=== PATIENT | male | born 1945 | race Caucasian/White ===

== ENCOUNTER 2020-12-18 15:28 | Outpatient (REF) | payer BC, SELFPAY ==
[2020-12-18 17:53] LABS: MANUAL DIFF FLAG NO
[2020-12-18 18:24] LABS: Basophils Percent Auto 0.5 % (0-2); Eosinophils Absolute Auto 0.2 X10*3/uL (0.0-0.4); Eosinophils Percent Auto 2.7 % (0-4); Hematocrit 41.2 % (42-52); Hemoglobin 13.3 g/dl (14.0-18.0); Imm Gran Abs Auto 0.03 X10*3/uL (0.00-0.03); Imm Gran Pct Auto 0.4 % (0.0-0.4); Lymphocytes Absolute Auto 1.6 X10*3/uL (1.2-4.9); Lymphocytes Percent Auto 19.1 % (20-40); Mean Corpuscular HGB Conc 32.3 g/dl (31.0-36.0); Mean Corpuscular Hemoglobin 29.4 pg (27.0-33.0); Mean Corpuscular Volume 90.9 fL (80-98); Mean Platelet Volume 11.1 fL (9.4-12.4); Monocytes Absolute Auto 0.8 X10*3/uL (0.1-1.2); Monocytes Percent Auto 8.8 % (2-11); Neutrophils Absolute Auto 5.9 X10*3/uL (2.0-8.3); Neutrophils Percent Auto 68.5 % (45-73); Platelet Count 184 X10*3/uL (160-400); Red Blood Count 4.53 X10*6/uL (4.60-5.80); Red Cell Distribution Width 13.3 % (11.0-16.0); White Blood Count 8.5 X10*3/uL (4.8-10.8)
[2020-12-18 18:42] LABS: Free T4 (Free Thyroxine) 0.75 ng/dL (0.71-1.85)
[2020-12-18 18:55] LABS: Erythrocyte Sedimentation Rate 45 MM/HR (0-15)
[2020-12-18 18:58] LABS: Alanine Aminotransferase 15 U/L (0-40); Albumin Level 3.9 g/dL (3.5-5.0); Alkaline Phosphatase 75 U/L (39-117); Amylase 33 U/L (28-100); Anion Gap 15 (12-20); Aspartate Amino Transferase 16 U/L (5-37); Bilirubin Direct 0.3 mg/dL (0.0-0.5); Bilirubin Total 0.8 mg/dL (0.0-1.0); Blood Urea Nitrogen 20 mg/dL (9-16); C Reactive Protein 14.52 mg/dL (< or = 0.50); Calcium 8.6 mg/dL (8.4-10.2); Carbon Dioxide 29 mmol/L (22-29); Chloride 102 mmol/L (96-108); Estimated Glomerular Filt Rate 53; Glucose Random 176 mg/dL (60-115); Lipase 19 U/L (8-78); Potassium 4.1 mmol/L (3.3-5.1); Rheumatoid Factor < 15.0 IU/mL (<15.0); Sodium 142 mmol/L (135-145); Total Protein 7.1 g/dL (6.5-8.0)
[2020-12-20 22:26] LABS: Anti Nuclear Antibody Pattern Nuclear, Homogeneous; Anti Nuclear Antibody Screen POSITIVE (NEGATIVE); Anti Nuclear Antibody Titer 1:40 titer
== END 2020-12-18 15:29 | disposition home or self-care (01) ==
LOC: HO.MANLDS 15:28
PROVIDERS: PCP Internal Medicine; Visit Provider Physician Assistant
DX: R21 Rash and other nonspecific skin eruption (principal)
CPT/HCPCS: 36415; 80053; 80076; 82150; 82248; 83690; 84439; 84443; 85025; 85652; 86038; 86039; 86140; 86431

== ENCOUNTER 2020-12-26 15:16 | Outpatient (REF) | payer BC, SELFPAY ==
[2020-12-26 17:51] LABS: MANUAL DIFF FLAG NO
[2020-12-26 18:00] LABS: Basophils Absolute Auto 0.1 X10*3/uL (0.0-0.2); Basophils Percent Auto 0.5 % (0-2); Eosinophils Absolute Auto 0.5 X10*3/uL (0.0-0.4); Eosinophils Percent Auto 4.8 % (0-4); Hemoglobin 14.1 g/dl (14.0-18.0); Imm Gran Abs Auto 0.18 X10*3/uL (0.00-0.03); Imm Gran Pct Auto 1.9 % (0.0-0.4); Lymphocytes Absolute Auto 2.9 X10*3/uL (1.2-4.9); Lymphocytes Percent Auto 30.6 % (20-40); Mean Corpuscular HGB Conc 32.8 g/dl (31.0-36.0); Mean Corpuscular Volume 88.3 fL (80-98); Mean Platelet Volume 10.6 fL (9.4-12.4); Monocytes Absolute Auto 0.8 X10*3/uL (0.1-1.2); Monocytes Percent Auto 8.7 % (2-11); Neutrophils Percent Auto 53.5 % (45-73); Platelet Count 284 X10*3/uL (160-400); Red Blood Count 4.87 X10*6/uL (4.60-5.80); Red Cell Distribution Width 13.2 % (11.0-16.0); White Blood Count 9.4 X10*3/uL (4.8-10.8)
[2020-12-26 18:39] LABS: Alanine Aminotransferase 19 U/L (0-40); Albumin Level 4.1 g/dL (3.5-5.0); Alkaline Phosphatase 65 U/L (39-117); Anion Gap 13 (12-20); Aspartate Amino Transferase 17 U/L (5-37); Bilirubin Total 0.5 mg/dL (0.0-1.0); Blood Urea Nitrogen 28 mg/dL (9-16); Calcium 9.2 mg/dL (8.4-10.2); Carbon Dioxide 29 mmol/L (22-29); Chloride 100 mmol/L (96-108); Estimated Glomerular Filt Rate 56; Glucose Random 118 mg/dL (60-115); Potassium 4.4 mmol/L (3.3-5.1); Rheumatoid Factor < 15.0 IU/mL (<15.0); Sodium 138 mmol/L (135-145); Total Protein 7.4 g/dL (6.5-8.0)
[2020-12-26 18:42] LABS: Erythrocyte Sedimentation Rate 21 MM/HR (0-15)
[2020-12-31 19:36] LABS: Anti Nuclear Antibody Screen NEGATIVE (NEGATIVE)
== END 2020-12-26 15:17 | disposition home or self-care (01) ==
LOC: HO.MANLDS 15:16
PROVIDERS: PCP Internal Medicine; Visit Provider Physician Assistant
DX: R21 Rash and other nonspecific skin eruption (principal)
CPT/HCPCS: 36415; 80053; 85025; 85652; 86038; 86039; 86140; 86431

== ENCOUNTER 2021-01-02 07:28 | Outpatient (REF) | payer BC, SELFPAY ==
[2021-01-02 11:19] LABS: Estimated Average Glucose 183 mg/dL
[2021-01-02 11:42] LABS: Alanine Aminotransferase 20 U/L (0-40); Albumin Level 4.1 g/dL (3.5-5.0); Alkaline Phosphatase 63 U/L (39-117); Anion Gap 13 (12-20); Aspartate Amino Transferase 19 U/L (5-37); Bilirubin Total 0.8 mg/dL (0.0-1.0); Blood Urea Nitrogen 22 mg/dL (9-16); Calcium 9.1 mg/dL (8.4-10.2); Carbon Dioxide 26 mmol/L (22-29); Chloride 103 mmol/L (96-108); Cholesterol 130 mg/dL; Estimated Glomerular Filt Rate > 60; Glucose Fasting 182 mg/dL (60-99); HDL Cholesterol 46 mg/dL; LDL Cholesterol Calculated 50 mg/dl; Potassium 4.5 mmol/L (3.3-5.1); Sodium 137 mmol/L (135-145); Total Protein 7.2 g/dL (6.5-8.0); Triglycerides 171 mg/dL
== END 2021-01-02 07:29 | disposition home or self-care (01) ==
LOC: HO.MANLR 07:28
PROVIDERS: PCP Internal Medicine; Visit Provider Internal Medicine
DX: E11.9 Type 2 diabetes mellitus without complications (principal)
CPT/HCPCS: 36415; 80053; 80061; 83036

== ENCOUNTER 2021-04-24 14:40 | Outpatient (REF) | payer BC, SELFPAY ==
[2021-04-24 16:58] LABS: Estimated Average Glucose 157 mg/dL; Hemoglobin A1c % 7.1 %
== END 2021-04-24 14:41 | disposition home or self-care (01) ==
LOC: HO.MANLDS 14:40
PROVIDERS: PCP Internal Medicine; Visit Provider Internal Medicine
DX: E11.9 Type 2 diabetes mellitus without complications (principal)
CPT/HCPCS: 36415; 83036

== ENCOUNTER 2021-07-31 14:41 | Outpatient (REF) | payer BC, SELFPAY ==
[2021-08-01 08:23] LABS: Estimated Average Glucose 146 mg/dL; Hemoglobin A1c % 6.7 %
== END 2021-07-31 14:42 | disposition home or self-care (01) ==
LOC: HO.MANLDS 14:41
PROVIDERS: PCP Internal Medicine; Visit Provider Internal Medicine
DX: E11.9 Type 2 diabetes mellitus without complications (principal)
CPT/HCPCS: 36415; 83036

== ENCOUNTER 2021-11-01 14:59 | Outpatient (REF) | payer BC, SELFPAY ==
[2021-11-01 18:34] LABS: Estimated Average Glucose 154 mg/dL
== END 2021-11-01 15:00 | disposition home or self-care (01) ==
LOC: HO.MANLDS 14:59
PROVIDERS: PCP Internal Medicine; Visit Provider Internal Medicine
DX: E11.9 Type 2 diabetes mellitus without complications (principal)
CPT/HCPCS: 36415; 83036

== ENCOUNTER 2022-02-14 07:41 | Outpatient (REF) | payer BC, SELFPAY ==
[2022-02-14 11:40] LABS: Estimated Average Glucose 157 mg/dL; Hemoglobin A1c % 7.1 %
[2022-02-14 11:53] LABS: Creatinine Urine 64.52 mg/dL; Microalbum/Creatinine Ratio Ur 7.7 ug/mg cr
[2022-02-14 12:19] LABS: Alanine Aminotransferase 21 U/L (0-40); Albumin Level 3.9 g/dL (3.5-5.0); Alkaline Phosphatase 60 U/L (39-117); Anion Gap 10 (12-20); Aspartate Amino Transferase 22 U/L (5-37); Bilirubin Total 0.4 mg/dL (0.0-1.0); Blood Urea Nitrogen 21 mg/dL (9-16); Calcium 9.4 mg/dL (8.4-10.2); Carbon Dioxide 30 mmol/L (22-29); Chloride 104 mmol/L (96-108); Cholesterol 112 mg/dL; Estimated Glomerular Filt Rate > 60; Glucose Fasting 158 mg/dL (60-99); HDL Cholesterol 45 mg/dL; LDL Cholesterol Calculated 50 mg/dl; Potassium 4.7 mmol/L (3.3-5.1); Sodium 139 mmol/L (135-145); Total Protein 7.2 g/dL (6.5-8.0); Triglycerides 86 mg/dL
== END 2022-02-14 07:42 | disposition home or self-care (01) ==
LOC: HO.MANLDS 07:41
PROVIDERS: PCP Internal Medicine; Visit Provider Internal Medicine
DX: E11.9 Type 2 diabetes mellitus without complications (principal)
CPT/HCPCS: 36415; 80053; 80061; 82043; 83036

== ENCOUNTER 2022-06-06 13:37 | Outpatient (REF) | payer BC, SELFPAY ==
[2022-06-06 18:32] LABS: Alanine Aminotransferase 20 U/L (0-40); Albumin Level 4.1 g/dL (3.5-5.0); Alkaline Phosphatase 61 U/L (39-117); Anion Gap 12 (12-20); Aspartate Amino Transferase 24 U/L (5-37); Bilirubin Total 0.4 mg/dL (0.0-1.0); Blood Urea Nitrogen 26 mg/dL (9-16); Calcium 9.4 mg/dL (8.4-10.2); Carbon Dioxide 31 mmol/L (22-29); Chloride 102 mmol/L (96-108); Cholesterol 115 mg/dL; Estimated Glomerular Filt Rate 57; Glucose Random 124 mg/dL (60-115); HDL Cholesterol 48 mg/dL; LDL Cholesterol Calculated 35 mg/dl; Potassium 5.2 mmol/L (3.3-5.1); Sodium 140 mmol/L (135-145); Total Protein 7.2 g/dL (6.5-8.0); Triglycerides 160 mg/dL
[2022-06-06 18:38] LABS: Creatinine Urine 139.89 mg/dL
[2022-06-06 18:52] LABS: Prostate Specific Antigen 0.16 ng/mL (<0.05-4.0)
[2022-06-07 05:18] LABS: Estimated Average Glucose 154 mg/dL
== END 2022-06-06 13:38 | disposition home or self-care (01) ==
LOC: HO.MANLDS 13:37
PROVIDERS: Visit Provider Internal Medicine
DX: Z12.5 Encounter for screening for malignant neoplasm of prostate (principal); E11.9 Type 2 diabetes mellitus without complications
CPT/HCPCS: 36415; 80053; 80061; 82043; 83036; 84153

== ENCOUNTER 2022-09-01 15:31 | Outpatient (REF) | payer BC, SELFPAY ==
[2022-09-01 18:06] LABS: Estimated Average Glucose 166 mg/dL; Hemoglobin A1c % 7.4 %
== END 2022-09-01 15:32 | disposition home or self-care (01) ==
LOC: HO.MANLDS 15:31
PROVIDERS: Visit Provider Internal Medicine
DX: E11.9 Type 2 diabetes mellitus without complications (principal); Z12.5 Encounter for screening for malignant neoplasm of prostate
CPT/HCPCS: 36415; 83036

== ENCOUNTER 2022-12-05 13:42 | Outpatient (REF) | payer BC, SELFPAY ==
[2022-12-05 19:45] LABS: Alanine Aminotransferase 20 U/L (0-40); Albumin Level 4.1 g/dL (3.5-5.0); Alkaline Phosphatase 69 U/L (39-117); Aspartate Amino Transferase 27 U/L (5-37); Bilirubin Total 0.7 mg/dL (0.0-1.0); Blood Urea Nitrogen 27 mg/dL (9-16); Calcium 9.3 mg/dL (8.4-10.2); Carbon Dioxide 26 mmol/L (22-29); Chloride 104 mmol/L (96-108); Cholesterol 109 mg/dL; Estimated Glomerular Filt Rate 56; Glucose Random 90 mg/dL (60-115); HDL Cholesterol 43 mg/dL; LDL Cholesterol Calculated 42 mg/dl; Potassium 4.5 mmol/L (3.3-5.1); Sodium 141 mmol/L (135-145); Triglycerides 124 mg/dL
[2022-12-05 19:46] LABS: Anion Gap 16 (12-20)
[2022-12-06 05:16] LABS: Estimated Average Glucose 148 mg/dL; Hemoglobin A1c % 6.8 %
== END 2022-12-05 13:43 | disposition home or self-care (01) ==
LOC: HO.MANLDS 13:42
PROVIDERS: Visit Provider Internal Medicine
DX: Z12.5 Encounter for screening for malignant neoplasm of prostate (principal); E11.9 Type 2 diabetes mellitus without complications
CPT/HCPCS: 36415; 80053; 80061; 83036

== ENCOUNTER 2023-03-13 07:38 | Outpatient (REF) | payer BC, SELFPAY ==
[2023-03-13 11:58] LABS: Estimated Average Glucose 134 mg/dL; Hemoglobin A1c % 6.3 %
[2023-03-13 12:16] LABS: Alanine Aminotransferase 22 U/L (0-40); Alkaline Phosphatase 57 U/L (39-117); Anion Gap 12 (12-20); Aspartate Amino Transferase 26 U/L (5-37); Bilirubin Total 0.6 mg/dL (0.0-1.0); Blood Urea Nitrogen 20 mg/dL (9-16); Calcium 9.3 mg/dL (8.4-10.2); Carbon Dioxide 28 mmol/L (22-29); Chloride 106 mmol/L (96-108); Cholesterol 94 mg/dL; Estimated Glomerular Filt Rate > 60; Glucose Random 115 mg/dL (60-115); HDL Cholesterol 40 mg/dL; LDL Cholesterol Calculated 39 mg/dl; Potassium 4.7 mmol/L (3.3-5.1); Sodium 141 mmol/L (135-145); Total Protein 7.2 g/dL (6.5-8.0); Triglycerides 75 mg/dL
== END 2023-03-13 07:39 | disposition home or self-care (01) ==
LOC: HO.MANLDS 07:38
PROVIDERS: Visit Provider Internal Medicine
DX: Z12.5 Encounter for screening for malignant neoplasm of prostate (principal); E11.9 Type 2 diabetes mellitus without complications
CPT/HCPCS: 36415; 80053; 80061; 83036

== ENCOUNTER 2023-07-03 13:36 | Outpatient (REF) | payer BC, SELFPAY ==
[2023-07-04 04:48] LABS: Estimated Average Glucose 146 mg/dL; Hemoglobin A1c % 6.7 % (<6.0)
== END 2023-07-03 13:37 | disposition home or self-care (01) ==
LOC: HO.MANLDS 13:36
PROVIDERS: Visit Provider Internal Medicine
DX: E11.9 Type 2 diabetes mellitus without complications (principal)
CPT/HCPCS: 36415; 83036

== ENCOUNTER 2023-10-02 07:34 | Outpatient (REF) | payer BC, SELFPAY ==
[2023-10-02 13:26] LABS: MANUAL DIFF FLAG NO
[2023-10-02 13:39] LABS: Basophils Absolute Auto 0.1 X10*3/uL (0.0-0.2); Basophils Percent Auto 0.9 % (0-2); Eosinophils Absolute Auto 0.5 X10*3/uL (0.0-0.4); Eosinophils Percent Auto 6.5 % (0-4); Hematocrit 46.1 % (42.0-52.0); Hemoglobin 14.6 g/dl (14.0-18.0); Imm Gran Abs Auto 0.03 X10*3/uL (0.00-0.03); Imm Gran Pct Auto 0.4 % (0.0-0.4); Lymphocytes Absolute Auto 1.8 X10*3/uL (1.2-4.9); Lymphocytes Percent Auto 26.3 % (20-40); Mean Corpuscular HGB Conc 31.7 g/dl (31.0-36.0); Mean Corpuscular Hemoglobin 28.6 pg (27.0-33.0); Mean Corpuscular Volume 90.4 fL (80.0-98.0); Mean Platelet Volume 10.9 fL (9.4-12.4); Monocytes Absolute Auto 0.5 X10*3/uL (0.1-1.2); Monocytes Percent Auto 7.5 % (2-11); Neutrophils Percent Auto 58.4 % (45-73); Platelet Count 259 X10*3/uL (160-400); Red Cell Distribution Width 13.4 % (11.0-16.0); White Blood Count 6.9 X10*3/uL (4.8-10.8)
[2023-10-02 13:55] LABS: Estimated Average Glucose 154 mg/dL
[2023-10-02 14:12] LABS: Alanine Aminotransferase 21 U/L (0-40); Alkaline Phosphatase 65 U/L (39-117); Anion Gap 16 (12-20); Aspartate Amino Transferase 28 U/L (5-37); Bilirubin Total 0.7 mg/dL (0.0-1.0); Blood Urea Nitrogen 22 mg/dL (9-16); Calcium 9.4 mg/dL (8.4-10.2); Carbon Dioxide 27 mmol/L (22-29); Chloride 103 mmol/L (96-108); Cholesterol 104 mg/dL (<200); Estimated Glomerular Filt Rate > 60; Glucose Random 120 mg/dL (60-115); HDL Cholesterol 45 mg/dL (>40); LDL Cholesterol Calculated 37 mg/dL (<100); Magnesium 2.3 mg/dL (1.6-2.6); Potassium 4.4 mmol/L (3.3-5.1); Sodium 142 mmol/L (135-145); Total Protein 7.8 g/dL (6.5-8.0); Triglycerides 114 mg/dL (<150)
[2023-10-02 14:29] LABS: Thyroid Stimulating Hormone 1.04 uIU/mL (0.32-4.0); Vitamin D 25-OH Total 30.1 ng/mL (>30)
== END 2023-10-02 07:35 | disposition home or self-care (01) ==
LOC: HO.MANLDS 07:34
PROVIDERS: Visit Provider Internal Medicine
DX: I10 Essential (primary) hypertension (principal); E11.9 Type 2 diabetes mellitus without complications
CPT/HCPCS: 36415; 80053; 80061; 82306; 83036; 83735; 84443; 85025

== ENCOUNTER 2024-01-06 15:34 | Outpatient (REF) | payer BC, SELFPAY ==
[2024-01-06 17:51] LABS: Estimated Average Glucose 154 mg/dL
== END 2024-01-06 15:35 | disposition home or self-care (01) ==
LOC: HO.MANLDS 15:34
PROVIDERS: Visit Provider Internal Medicine
DX: E11.9 Type 2 diabetes mellitus without complications (principal)
CPT/HCPCS: 36415; 83036

== ENCOUNTER 2024-04-11 07:29 | Outpatient (REF) | payer BC, SELFPAY ==
[2024-04-11 13:42] LABS: Estimated Average Glucose 151 mg/dL; Hemoglobin A1c % 6.9 % (<6.0)
[2024-04-11 13:46] LABS: Alanine Aminotransferase 22 U/L (0-40); Albumin Level 3.9 g/dL (3.5-5.0); Alkaline Phosphatase 59 U/L (39-117); Anion Gap 15 (12-20); Aspartate Amino Transferase 28 U/L (5-37); Bilirubin Total 0.8 mg/dL (0.0-1.0); Blood Urea Nitrogen 18 mg/dL (9-16); Calcium 9.2 mg/dL (8.4-10.2); Carbon Dioxide 24 mmol/L (22-29); Chloride 106 mmol/L (96-108); Cholesterol 83 mg/dL (<200); Estimated Glomerular Filt Rate > 60; Glucose Random 122 mg/dL (60-115); HDL Cholesterol 39 mg/dL (>40); LDL Cholesterol Calculated 27 mg/dL (<100); Potassium 4.2 mmol/L (3.3-5.1); Sodium 141 mmol/L (135-145); Total Protein 7.2 g/dL (6.5-8.0); Triglycerides 85 mg/dL (<150)
== END 2024-04-11 07:30 | disposition home or self-care (01) ==
LOC: HO.MANLDS 07:29
PROVIDERS: Visit Provider Physician Assistant
DX: E11.9 Type 2 diabetes mellitus without complications (principal)
CPT/HCPCS: 36415; 80053; 80061; 83036

== ENCOUNTER 2024-07-08 11:12 | Outpatient (REF) | payer BC, SELFPAY ==
[2024-07-08 14:09] LABS: Estimated Average Glucose 157 mg/dL; Hemoglobin A1c % 7.1 % (<6.0)
== END 2024-07-08 11:13 | disposition home or self-care (01) ==
LOC: HO.MANLNP 11:12
PROVIDERS: Visit Provider Internal Medicine
DX: E11.9 Type 2 diabetes mellitus without complications (principal)
CPT/HCPCS: 36415; 83036

== ENCOUNTER 2025-02-14 09:43 | Outpatient (REF) | payer BC, SELFPAY ==
--- OUTSIDE RECORDS SUMMARY | 2025-02-14 10:51 | XMS_ITS | Data Portability ---
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 MODERATE MUST MEET 2 OUT OF 3 ELEMENTS: PROBLEMS, DATA OR RISK ELEMENT 1: PROBLEMS ADDRESSED 1 OR MORE CHRONIC ILLNESS WITH EXACERBATION OR 2 OR MORE STABLE CHRONIC ILLNESSES OR 1 UNDIAGNOSED NEW PROBLEM OR 1 ACUTE ILLNESS W/SYMPTOMS OR 1 ACUTE COMPLICATED INJURY ELEMENT 2: DATA MUST MEET 1 OF 3 CATEGORIES CATEGORY 1: REVIEW OF PRIOR EXTERNAL NOTES, REVIEW OF RESULTS, ORDERING OF EACH TEST, ASSESSMENT REQUIRING INDEPENDENT HISTORIAN OR CATEGORY 2: INDEPENDENT INTERPRETATION OF TESTS BY ANOTHER PHYSICIAN OR SPECIALIST OR CATEGORY 3: DISCUSSION OF MGT OR TEST INTERPRETATION W/EXTERNAL PHYSICIAN OR SPECIALIST ELEMENT 3: RISK RISK OF COMPLICATIONS AND/OR MORBIDITY OR MORTALITY OF PATIENT MANAGEMENT PROVIDER MUST THOROUGHLY DOCUMENT EACH ELEMENT THAT IS COVERED Not available 04/11/2024 13:41:53 11/16/2024 11/16/2024 cricket/ brodie Not available 11/16/2024 15:20:22 Plan of Treatment Reminders Order Date Submit Date Provider Last Modified By Organization Details Last Modified Time Details Appointments MEDICARE ANNUAL WELLNESS 2024 02:00P M DR MIRAMONTES Not available Not available Not available Lab HbA1c (hemoglob in A1c), blood 2022 023 [facility], [address] [place] [address], [place], [address], 10/06/2023 16:07:18 CMP, serum or plasma 2022 023 [facility], [address] [place] [address], [place], [address], 10/06/2023 16:07:18 lipid panel, blood 2022 023 [facility], [address] [place] [address], [id number], 10/06/2023 16:07:18 hemoglobi n A1c, QN, blood 2022 023 [facility], [address] [place] [address], [id number], 10/06/2023 16:07:18 Referral None recorded. Procedures None recorded. Surgeries None recorded. Imaging None recorded. Medication Orders None recorded. Patient TargetsNo targets recorded. Patient Instructions Encounter Date Encounter Id Patient Instructions Last Modified By Organization Details Last Modified Time 11/16/2024 [id number] learning about asthma Not available 11/16/2024 15:21:38 pulse oximetry* ALONA Not available 11/16/2024 15:48:30 sleep apnea: car e instructions Not available 11/16/2024 15:21:38 learning about type 2 diabetes Not available 11/16/2024 15:21:37 type 2 diabetes: care instructions Not available 11/16/2024 15:21:38 high blood pressure: care instructions Not available 11/16/2024 15:21:38 learning about high blood pressure Not available 11/16/2024 15:21:38 Reason for Referral None Reported. Results Created Date Observation Date Name Description Value Unit Range Abnormal Flag Note LastModifiedBy Organization Detail LastModifiedTime 11/16/1911/16/2024 pulse oxime try* Result 97% RA Not Available [facility] [address] [facility] [address], [place], [address], 11/14/2024 14:16:09 06/19/20 24 04/05/2024 US, carot id arter y No observ ation record ed. [email or web address] [facility] [address], [place], [address], 04/06/2024 09:00:29 12/22/19 25 12/09/2024 flora r monit or No observ ation record ed. [facility] [address], [place], [address], 12/22/2024 07:43:33 Result Notes None recorded. Problems Name Problem SNOMED Code Status Onset Date Resolution Date Notes Provider Name and Address Organization Details Recorded Time Myalgia caused by statin 41563079502 260098 Active 2018 Nara mendoza [facility] 4 09:28:06 Near syncope 241334375 Active 2021 Nara mendoza [facility] 4 09:27:46 Sleep apnea 02250745 Active 2021 Nara mendoza [facility] 4 09:27:46 Coronary arterios clerosis 05393200 Active 2017 Nara mendoza [facility] 4 09:27:46 Coronary artery bypass graft occlusio n 397276344 Active 2017 4 vssl, 1999 Nara mendoza [facility] 4 09:27:46 Hypercho lesterol emia 79811759 Active 2017 Nara mendoza [facility] 4 09:27:46 Asthma 007480900 Active 2017 Nara mendoza [facility] 4 09:27:46 Hypergly cemia 70149802 Completed 201709/13/2018 dEmundo Miramontes, DO [address] [facility], [place], [address], [facility] 8 15:49:26 Impaired fasting glycemia 375302111 Completed 201703/28/2020 Edmundo Colunga Archanastan, DO [address] [facility], [place], [address], [facility] 0 16:08:55 Obesity 106186687 [facility] 2017 [facility] 09:27:46 [facility] gabe 24205903 Active 2017 [facility] 4 09:27:46 Edema of lower leg 153701376 Active 2017 [facility] 4 09:28:06 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 Active 2017 [facility] 4 09:27:46 History of carotid endarter ectomy 341210817 [facility] 2017 [facility] 4 09:27:46 Obstruct fanny sleep apnea syndrome 53215836 [facility] 2017 [facility] 4 09:27:46 Type 2 diabetes mellitus 94337358 Active 2017 [facility] 4 09:27:46 Acute otitis media 0291449 [facility] 2023 [facility] 4 09:27:59 Acute otitis media 5178212 [facility] 2023 [facility] 4 09:27:59 Serous otitis media 85734779 [facility] 20[facility] 4 09:27:46 Serous otitis media 84302290 Active 20[facility] 4 09:27:46 Acute sinusiti s 57101165 [facility] 4 09:27:59 Cervical radiculo johnny 10176515 Active 2024 Edmundo Miramontes, DO [address] [place], [address], [place] [facility] 5 15:23:10 Problem Notes None recorded. Procedures Surgical History None recorded. Imaging Results Imaging Date Name Status LastModified by Organiz ation Details LastModified Time 04/05/2024 US, carotid artery completed rtba [facility] [address], [place], [address], 04/06/2024 09:00:29 12/09/2024 holter monitor completed [facility] [address], [address], 12/22/2024 07:43:33 Procedure Notes None recorded. Medical Equipment None Reported. Allergies Allergen ID Allergen Name Allergen Category Reaction Reaction Severity Criticality Documentation Date Start Date Code Code System Note Provider Name and Address Organization Details Recorded Time 2927 Product containin g 3-hydroxy -3-methyl glutaryl- coenzyme A reductase inhibitor (product) medicatio n myalgias (muscle pain) severe Not available 01/05/20192018 74813 009 SNOMED Edmundo Miramontes, DO [address] [place], [address], [place] [facility] 9 16:32:53 703 Advil medicatio n other Not available Not available 01/12/2018 86482 0 RxNorm Kaylin mendoza [facility] 8 10:08:34 Medications Name Sig Start Date Stop Date Status Note LastModified by Organization Details LastModified Time shingrix 50 mcg/0.5ml susr 09/12 completed Not Available Not Available Not Available lisinopril/ hydrochloro thiazide 10-12.5 mg tabs 09/12 completed Not Available Not Available Not Available pravastatin sodium 20 mg tabs 12/29 completed Not Available Not Available Not Available amoxicillin /clavulanat e potassium 875-125 mg tabs 12/18 completed Not Available Not Available Not Available rosuvastati n calcium 10 mg tabs 12/18 completed Not Available Not Available Not Available gavilyte-g 236 gm solr 12/18 completed Not Available Not Available Not Available fluzone high-dose pf 5299-0924 .5 ml erick 12/29 completed Not Available Not Available Not Available bisacodyl ec 5 mg tbec 12/18 completed Not Available Not Available Not Available montelukast sodium 10 mg tabs 12/18 completed Not Available Not Available Not Available fluzone high-dose pf .5 ml erick 09/12 completed Not Available Not Available Not Available prevnar 13 susp 09/12 completed Not Available Not Available Not Available freestyle lancets misc active Not Available Not Available Not Available amoxicillin 500 mg capsule 01/11 completed Not Available Not Available Not Available magnesium 500 mg tablet Take 1 tablet every day by oral route. active Not Available Not Available No t Available prednisone 10 mg tablet 4 tabs x 2 days 3 tabs x 2 days 2 tabs x 2 days 1 tab x 2 days 01/07 completed Not Available Not Available Not Available valacyclovi r 1 gram tablet TAKE 1 TABLET BY MOUTH TWICE DAILY FOR 14 DAYS THEN TAKE ONCE DAILY UNTIL FINISHED 09/08 completed Not Available Not Available Not Available FreeStyle Lancets 28 gauge USE TO CHECK BLOOD SUGAR EVERY DAY 2023 active Not Available Not Available Not Avai lable amoxicillin 875 mg tablet TAKE 1 TABLET BY MOUTH EVERY 12 HOURS FOR 10 DAYS 07/12 completed Not Available Not Available Not Available mupirocin calcium 2 % topical cream 12/29 completed Not Available Not Available Not Available montelukast 10 mg tablet TAKE 1 TABLET BY MOUTH ONCE DAILY 2024 active Not Available Not Available Not Avai lable pravastatin 20 mg tablet take 1 tablet by mouth once a day 01/05 completed Not Available Not Available Not Available lisinopril 10 mg-hydrochl orothiazide 12.5 mg tablet TAKE 1 TABLET BY MOUTH ONCE DAILY active Not Available Not Available No t Available methylpredn isolone 4 mg tablets in a dose pack FOLLOW PACKAGE DIRECTION S 02/21 completed Not Available Not Available Not Available ketoconazol e 2 % topical cream APPLY TOPICALLY TO THE AFFECTED AREA DAILY active Not Available Not Available No t Available amoxicillin 875 mg-potassiu m clavulanate 125 mg tablet TAKE 1 TABLET BY MOUTH EVERY 12 HOURS WITH FOOD FOR 10 DAYS 04/11 completed Not Available Not Available Not Available neomycin-po lymyxin-hyd rocort 3.5 mg-10,000 unit/mL-1 % ear drops,susp SHAKE LIQUID AND INSTILL 4 DROPS TO RIGHT EAR FOUR TIMES DAILY FOR 7 DAYS active Not Available Not Available No t Available Pneumovax-2 3 25 mcg/0.5 mL injection syringe 01/07 completed Not Available Not Available Not Available rosuvastati n 10 mg tablet TAKE 1 TABLET BY MOUTH EVERY DAY active Not Available Not Available No t Available cyanocobala min (vitamin B-12) 1000 mg qd active Not Available Not Available No t Available Aleve active Not Available Not Availa ble Not Available vitamin E 180mg qd active Not Available Not A vailable Not Available Fish Oil 2400 mg qd active Not Available Not Available No t Available Aspir-81 qd active Not Available Not Avai lable Not Available Tylenol active Not Available Not Avail able Not Available Vitamin D3 1000 IU qd active Not Available Not Available No t Available ProAir HFA 90 mcg/actuati on aerosol inhaler Inhale 2 puffs every 4 hours by inhalatio n route. active Not Available Not Available No t Available FreeStyle Lite Meter kit USE DIRECTED TO CHECK BLOOD SUGAR active Not Available Not Available No t Available FreeStyle Lite Strips USE TO TEST BLOOD SUGAR EVERY DAY 2024 active Not Available Not Available Not Avai lable Acidophilus Probiotic 0.5 mg qd active Not Available Not Available Not Available Osteo Bi-Flex 1500 mg qd active Not Available Not Available No t Available Trulicity 0.75 mg/0.5 mL subcutaneou s pen injector ADMINISTO R 0.75MG UNDER THE SKIN EVERY WEEK 2024 active Not Available Not Available Not Avai lable Afluria 3592-2581 (PF) 45 mcg(15 mcg x 3)/0.5 mL intramuscul ar syringe 09/13 completed Not Available Not Available Not Available Fluzone High-Dose (PF) 180 mcg/0.5 mL intramuscul ar syringe 09/13 completed Not Available Not Available Not Available Fluzone High-Dose Quad 2020-21 (PF) 240 mcg/0.7 mL IM syringe 01/07 completed Not Available Not Available Not Available Vitals Date Recorded Body height Body mass index (BMI) Body weight Heart rate Oxygen saturation Oxygen saturation in Arterial blood by Pulse oximetry Systolic blood pressure Diastolic blood pressure Provider Name and Address Organization Details Last Updated DateTime 4 170.82 cm 38.2 kg/m2 644558. 72 g 60 /min 100 % 100 % 132 mm[Hg] 84 mm[Hg] Nara Massey [facility] 4 15:28:00 Date Recorded Body height Body mass index (BMI) Body weight Heart rate Oxygen saturation Oxygen saturation in Arterial blood by Pulse oximetry Systolic blood pressure Diastolic blood pressure Provider Name and Address Organization Details Last Updated DateTime 4 170.82 cm 37.3 kg/m2 834777. 53 g 86 /min 95 % 95 % 108 mm[Hg] 50 mm[Hg] Nara Massey [facility] 4 13:30:43 Date Recorded Body height Body mass index (BMI) Body weight Heart rate Oxygen saturation Oxygen saturation in Arterial blood by Pulse oximetry Systolic blood pressure Diastolic blood pressure Provider Name and Address Organization Details Last Updated DateTime 4 170.82 cm 37.3 kg/m2 234030. 17 g 114 /min 97 % 97 % 130 mm[Hg] 66 mm[Hg] Lexy Valdez [facility] 4 14:47:47 Date Recorded Body height Body mass index (BMI) Body weight Heart rate Oxygen saturation Oxygen saturation in Arterial blood by Pulse oximetry Systolic blood pressure Diastolic blood pressure Provider Name and Address Organization Details Last Updated DateTime 5 170.82 cm 37.3 kg/m2 622143. 17 g 78 /min 97 % 97 % 100 mm[Hg] 60 mm[Hg] Lexy Valdez [facility] 5 14:54:15 Social History Question Answer Notes LastModified by Organizat ion Details LastModified Time Tobacco Smoking Status Former Smoker Not Available [facility] 08/21/2020 03:36:24 What Was The Date Of Your Most Recent Tobacco Screening? 11/16/2024 [email or web address] Information not available 11/16/2024 Do You Use Any Illicit Or Recreational Drugs? No [email or web address] Information not available 07/12/2024 Do You Or Have You Ever Used Any Other Forms Of Tobacco Or Nicotine? No [email or web address] Information not available 07/12/2024 Sex: Unknown Functional Status None recorded. Mental Status None recorded. Family History Nothing Reported. Medical History Condition Response Coronary Artery Disease N Gout N Other N Kidney Stones N Blood Diseases N Blood Transfusion N Breast Cancer N COPD N Depression N Lung Disease N Defects or Inherited Disease N Anxiety Disorder N Muscle, Joint, or Bone Problems N Obesity N Vision or Eye Problems N Arthritis N Infertility N Polyps N Mental Disorder N Cancer N Stroke N Varicosities N Endometriosis N Bladder or Kidney Problems N High Cholesterol N Liver Disease N Fibromyalgia N Headaches N Kidney Disease N Allergies/Hayfever N Heart Problems N Hospitalizations N Thyroid Problems N GI Problems N Eating Disorder N Skin Problems N Anemia N MRSA exposure N Constipation N Mental Illness N Diabetes N Ovarian Cancer N Seizures/Epilepsy N Tuberculosis N Congestive Heart Failure (CHF) N Eczema N Abuse/Domestic Violence N Diverticulitis N Asthma N Reflux/GERD N Hepatitis N Heart Disease N Pulmonary Embolism N Hypertension N Chicken Pox N Autism Spectrum Disorder (ASD) N Osteoporosis N Immunizations Vaccine Type Date Status Note Provider Nam e and Address Organization Details Recorded Time Influenza, split virus, quadrivalent, preservative 1 completed Not Available [facility] 11/28/2022 16:36:16 Influenza, split virus, quadrivalent, preservative 8 completed Not Available [facility] 11/28/2022 16:36:16 Tdap 1 completed Not Available [facility] 11/28/2022 16:36:16 COVID-19, mRNA, LNP-S, PF, 30 mcg/0.3 mL dose 1 completed Not Available [facility] 11/28/2022 16:36:16 COVID-19, mRNA, LNP-S, PF, 30 mcg/0.3 mL dose 1 completed Not Available [facility] 11/28/2022 16:36:16 COVID-19, mRNA, LNP-S, bivalent, PF, 10 mcg/0.2 mL dose 2 completed Not Available [facility] 11/28/2022 16:36:16 influenza, unspecified formulation 2 completed Not Available [facility] 11/28/2022 16:36:16 Influenza, split virus, quadrivalent, preservative 9 completed Not Available [facility] 11/28/2022 16:36:16 zoster live 9 completed Not Available [facility] 11/28/2022 16:36:16 Pneumococcal conjugate PCV 13 9 completed Not Available [facility] 11/28/2022 16:36:16 zoster live 9 completed Not Available [facility] 11/28/2022 16:36:16 Influenza, split virus, quadrivalent, preservative 0 completed Not Available [facility] 11/28/2022 16:36:16 pneumococcal polysaccharide PPV23 0 completed Not Available [facility] 11/28/2022 16:36:16 COVID-19 vaccine, vector-nr, rS-ChAdOx1, PF, 0.5 mL 1 completed Not Available [facility] 11/28/2022 16:36:16 Past Encounters Encounter ID Performer Location Encounter Start Date Encounter Closed Date Diagnosis/Indication Diagnosis SNOMED-CT Code Diagnosis ICD10 Code Diagnosis Note [id number] Edmundo Miramontes DO [facility] [address] [facility], [place] [address] 04/30/2018 16:03:47 05/03/2018 12:48:32 Type 2 diabetes mellitus 46500517 E11.[address] of eating rechk a1c Essential hypertension 65568534 I10 good job has lost signif [place] work [id number] Edmundo Miramontes DO [facility] [address] [facility], [place] [address] 09/13/2018 15:36:45 09/13/2018 16:09:46 Type 2 diabetes mellitus 57262039 E11.9 continue with excellent way of eating rechk a1c a1c is now 6.0 from 6.7 doing signif better rechk in 3 months Essential hypertension 57163211 I10 good has lost signif amount of weight and is keeping off for the most part Abdominal aortic aneurysm screening 628779625 Z13.6 will do this Hepatitis C screening 41 3912397 Z11.59 next visit Coronary arteriosclerosis 44212283 I25.10 no CP and is completely asymptomat ic did do some shoveling recently told pt i would ask him not to shovel [id number] Edmundo Miramontes [facility] [address] [facility] [address] 12/29/2018 16:04:43 12/29/2018 16:58:02 Essential hypertension 56977492 I10 good has lost signif amount of weight and is keeping off for the most part Type 2 roberto betes mellitus 15113760 E11.9 continue with excellent way of eating rechk a1c a1c is now 6.3 from 6.0 doing signif better rechk in 3 months Asthma 998818966 J45.90 9 stable Muscle pain 12473419 M79 .10 believe this is th e pravastati n will stop [id number] Edmundo Miramontes [facility] [address] [facility] [address] 01/05/2019 16:08:49 01/05/2019 16:41:47 Myalgia caused by statin 0524478679 7644457 T46.6X5D markely better off lovastat noted cpk was quite elevat at 564 iglesia repeat lab in 1 month to document resolution Asthma 739752417 J45.90 9 stable [id number] Edmundo Miramontes [facility] [address] [facility] [address] 02/07/2019 15:57:15 02/07/2019 16:47:51 Myalgia caused by statin 5876499847 6459547 T46.6X5D markely better off lovastat noted cpk was quite elevat at 564 repeat lab in 1 month was down to 364 and pt doing much better will repeat in acouple months but in meantime will consider alternativ e Hypercholesterolemia 136 09972 E78.00 will try crestor per recc of cardiol [id number] Edmundo Miramontes [facility] [address] [facility] [address] 06/10/2019 08:56:14 06/10/2019 10:40:53 Type 2 diabetes mellitus 76373160 E11.9 continue with excellent way of eating rechk a1c a1c is now 6.3 from 6.0 doing signif better rechk in 3 months Essential hypertension 05583778 I10 zoe has lost signif amount of weight and is keeping off for the most part Asthma 640766465 J45.90 9 stable Active or passive immunization 107907011 Z23 told pt he should get shingles and pneumovax Screening for malignant neoplasm of colon 168903423 Z12.11 [id number] Edmundo Miramontes [facility] [address] [facility],[place] [address] 09/12/2019 15:56:39 09/12/2019 16:35:07 Type 2 diabetes mellitus 01087726 E11.9 Will try to eat better over holiday time, will try to increase exercise and lose weight a1c is now 6.5 from 6.3 rechk in 3 months Essential hypertension 34713366 I10 zoe has lost signif amount of weight and is keeping off for the most part Asthma 828509125 J45.90 9 stable Hypercholesterolemia 136 61362 E78.00 crestor is working great [id number] Edmundo Miramontes [facility] [address] [facility] [address] 12/19/2019 13:24:53 12/19/2019 14:31:45 Asthma 473244722 J45.909 stable not having issues with his vigorous walking Type 2 roberto betes mellitus 05656120 E11.9 Will try to eat better over holiday time, will try to increase exercise and lose weight a1c is now 7.0 was 6.5 and from 6.3 rechk in 3 months he is trying to lose the weight eating better diabetic exam was good from my standpoint but feel he needs to have his feet eval by dr augustin given the slight changes to the left foot Essential hypertension 18539693 I10 zoe has gained some weight and will be trying keeping off for the next visit Active or passive immunization 968678645 Z23 told pt he should get shingles and pneumovax Hepatitis C screening 41 2322149 Z11.59 next visit Coronary arteriosclerosis 72455695 I25.10 no CP and is completely asymptomat ic did do some shoveling recently told pt i would ask him not to shovel [id number] Edmundo Miramontes [facility] [address] [facility] [address] 03/28/2020 15:40:09 03/28/2020 16:16:56 Asthma 582779119 J45.909 stable not having issues with his vigorous walking Hypercholesterolemia 136 14076 E78.00 wesly is working great Type 2 roberto betes mellitus 70405716 E11.9 Will try to eat better over holiday time, will try to increase exercise and lose weight a1c is now 7.3 and was 7.0 was 6.5 and from 6.3 rechk in 3 months he is trying to lose the weight eating better hopefully he will be back to work soon diabetic exam was good from my standpoint Essential hypertension 36749571 I10 zoe has gained some weight during the covid crisis and will be trying keeping off for the next visit [id number] Edmundo Miramontes [facility] [address] [facility] [employer] [employer] [place] [place] [address] 07/18/2020 14:48:06 07/18/2020 15:33:23 Hypercholesterolemia 55009225 E78.00 wesly is working great Type 2 roberto betes mellitus 03015845 E11.9 Will try to eat better over holiday time, will try to increase exercise and lose weight a1c is now 7.7 but was 7.3 and was 7.0 was 6.5 and from 6.3 rechk in 3 months he is trying to lose the weight eating better hopefully he will be back to work soon diabetic exam was good from my standpoint Essential hypertension 80331960 I10 zoe has gained some weight during the covid crisis and will be trying keeping off for the next visit Asthma 807801772 J45.90 9 stable doing his walking at work every day not having issues with his vigorous walking Herpes zoster 3955490 B0 2.9 [id number] Edmundo Miramontes [facility] [address] [facility] [address] 10/08/2020 14:47:30 10/08/2020 15:50:56 Type 2 diabetes mellitus 45780878 E11.9 Will try to eat better over holiday time, will try to increase exercise and lose weight a1c is still 7.7 was 7.7 but was 7.3 and was 7.0 was 6.5 and from 6.3 rechk in 3 months he is trying to lose the weight eating better hopefully he will be back to work soon diabetic exam was good from my standpoint Asthma [id number] J45.90 9 stable doing his walking at work every day not having issues with his vigorous walking Essential hypertension 29966831 I10 good has gained some weight during the covid crisis and will be trying keeping off for the next visit Coronary arteriosclerosis 58980950 I25.10 no CP and is completely asymptomat ic did do some shoveling recently told pt i would ask him not to shovel [id number] ALBAN DIAS [facility] [address] [facility] [address] [address] 12/17/2020 15:42:22 12/17/2020 16:19:08 Fever with chills 579415470 R50.9 will treat with liquids, APAP/ibu, and bland diet, fu tomorrow if no change Muscle pain 61148089 M79 .10 body aches, localized in the arms and legs and back will treat with OTC NSAIDS Abdominal pain 07588997 R10.9 fu with me tomorrow if no change or worsening symptoms Loss of appetite 2979640 6 R63.0 COVID tested negative on Thursday [id number] ALBAN DIAS [facility] [address] [facility],[place] [address] 12/18/2020 14:45:33 12/19/2020 09:11:22 Asthma 306819319 J45.909 stable, no interventi on needed at this time Abdominal pain 35216762 R10.9 fu with me tomorrow will determine if symptoms improve with pred Maculopapu lar eruption 104138022 R21 will have patient be worked up with lab work and started on short pred taper will fu tomorrow to observe rash [id number] ALBAN DIAS [facility] [address] [facility],[place] [address] 12/19/2020 10:54:39 12/19/2020 14:50:06 Maculopapular eruption 448361414 R21 improved on pred taper, will finish taper and fu with lab work will call with update on thursday most likely a benign viral infection causing these symptoms Abdominal pain 13425607 R10.9 resolved per patient will fu with lab results and will call on thursday to let me know if any changes or is worsening [id number] Edmundo Miramontes DO [facility] [address] [place] [address] 01/07/2021 15:20:41 01/07/2021 16:16:43 Type 2 diabetes mellitus 56159604 E11.9 Will try to eat better over holiday time, will try to increase exercise and lose weight a1c is now 8.0 still 7.7 was 7.7 but was 7.3 and was 7.0 was 6.5 and from 6.3 rechk in 3 months he is trying to lose the weight eating better hopefully he will be back to work soon diabetic exam was good from my standpoint warned him again the need to eat better as he admits to not eating well at all times states not having his walking he wants to try to get the sugar down without med he is told that he needs to be treated but he would rather do on his own of note is the fact that the pred dosage caused an elevation in his glucose Essential hypertension 18751092 I10 good has gained some weight during the covid crisis and will be trying keeping off for the next visit Hypercholesterolemia 136 79970 E78.00 crestor is working great so far and this will be continued [id number] ALBAN DIAS [facility] [address] [facility],[place] [address] 01/15/2021 14:40:19 01/15/2021 17:50:20 Herpes zoster 5911797 B02.9 will fu if no improvemen t of the rash [id number] Edmundo Miramontes DO [facility] [address] [facility], [place] [address] 04/29/2021 15:14:44 04/29/2021 16:46:24 Hypercholesterolemia 46912654 E78.00 crestor is working great so far and this will be continued Type 2 roberto ovidio mellitus 32986957 E11.9 Will try to eat better over holiday time, will try to increase exercise and lose weight doing much better a1c is now 7.1 and was 8.0 prior 7.7 was 7.7 but was 7.3 and was 7.0 was 6.5 and from 6.3 rechk in 3 months he is trying to lose the weight eating better hopefully he will be back to work soon diabetic exam was good from my standpoint warned him again the need to eat better as he admits to not eating well at all times states not having his walking he wants to try to get the sugar down without med he is told that he needs to be treated but he would rather do on his own of note is the fact that the pred dosage caused an elevation in his glucose Essential hypertension 84841760 I10 zoe has gained some weight during the covid crisis and will be trying keeping off for the next visit Herpes zoster 9583853 B0 2.9 [id number] DO [facility] [address] [facility],[place] [address] 08/06/2021 15:30:41 08/07/2021 08:18:27 Asthma 071750259 J45.909 stable doing his walking at work every day not having issues with his vigorous walking Type 2 roberto betes mellitus 52823062 E11.9 Will try to eat better over holiday time, will try to increase exercise and lose weight doing much better a1c is now still better at 6.7 was 7.1 and was 8.0 prior 7.7 was 7.7 but was 7.3 and was 7.0 was 6.5 and from 6.3 rechk in 3 months he is trying to lose the weight eating better hopefully he will be back to work soon diabetic exam was good from my standpoint as before : warned him again the need to eat better as he admits to not eating well at all times states not having his walking he still wants to try to get the sugar down without med he is told that he needs to be treated but he would rather do on his own and he is actually doing it Essential hypertension 78100551 I10 zoe has dropprd some weight during the covid crisis and will be trying keeping off for the next visit [id number] DO [facility] [address] [facility],[place] [address] 11/08/2021 08:24:20 11/08/2021 13:31:25 Coronary arteriosclerosis 20650220 I25.10 no CP and is completely asymptomat ic did do some shoveling recently told pt i would ask him not to shovel Essential hypertension 04243188 I10 good has dropprd some weight during the covid crisis and will be trying keeping off for the next visit Type 2 roberto betes mellitus 37813246 E11.9 Will try to eat better over holiday time, will try to increase exercise and lose weight doing much better a1c is now still elevated at 7 he was better at 6.7 was 7.1 and was 8.0 prior 7.7 was 7.7 but was 7.3 and was 7.0 was 6.5 and from 6.3 rechk in 3 months he is trying to lose the weight eating better hopefully he will be back to work soon diabetic exam was good from my standpoint as before : warned him again the need to eat better as he admits to not eating well at all times states not having his walking he still wants to try to get the sugar down without med he is told that he needs to be treated but he would rather do on his own and he is actually doing it Tinea corporis 99239218 B35.4 [place] [id number] Edmundo Miramontes [facility] [address] [facility],[place] [address] 02/21/2022 15:18:03 02/24/2022 11:45:41 Asthma 551036682 J45.909 stable doing his walking at work every day not having issues with his vigorous walking Near syncope 988902416 R 55 we will await cardiac event recorder worrisome for tima arrythmia Sleep apnea 46952381 G47 .30 awaiting results [id number] Edmundo Miramontes [facility] [address] [facility],[place] [address] 06/10/2022 08:08:23 06/10/2022 15:56:31 Coronary arteriosclerosis 38207852 I25.10 no CP and is completely asymptomat ic did do some shoveling recently told pt i would ask him not to shovel Essential hypertension 12949356 I10 zoe has dropprd some weight during the covid crisis and will be trying keeping off for the next visit Type 2 roberto betes mellitus 16036429 E11.9 Will try to eat better over holiday time, will try to increase exercise and lose weight doing much better a1c is now still elevated at 7 prior he was 7.1 rechk in 3 months he is trying to lose the weight eating better hopefully he will be back to work soon diabetic exam was good from my standpoint as before : warned him again the need to eat better as he admits to not eating well at all times states not having his walking he still wants to try to get the sugar down without med he is told that he needs to be treated but he would rather do on his own and he is actually doing it Edema of lower leg 45883 7004 R60.0 no swellings now 15221 Edmundo Miramontes, [facility] [address] [facility],[place] [address] 09/08/2022 15:35:06 09/08/2022 16:39:45 Hypercholesterolemia 22548172 E78.00 crestor is working great so far and this will be continued Asthma 327465100 J45.90 9 stable doing his walking at work every day not having issues with his vigorous walking Type 2 roberto betes mellitus 63492478 E11.9 Will try to eat better over holiday time, will try to increase exercise and lose weight doing much better we will try to get him some trulicity or ozempic as this would be ideal for his glucose levels as well as with wgt los a1c is now still elevated at 7.4 prior he was 7.1 rechk in 3 months he is trying to lose the weight eating better hopefully he will be back to work soon diabetic exam was good from my standpoint as before : warned him again the need to eat better as he admits to not eating well at all times states not having his walking he still wants to try to get the sugar down without med he is told that he needs to be treated but he would rather do on his own and he is actually doing it Essential hypertension 04414428 I10 zoe has dropprd some weight during the covid crisis and will be trying keeping off for the next visit [id number] Edmundo Miramontes [facility] [address] [facility], [place] [address] 12/10/2022 13:51:50 12/10/2022 14:56:34 Type 2 diabetes mellitus 77302026 E11.9 rechk in 3 months he is trying to lose the weight eating better hopefully he will be back to work soon diabetic exam was good from my standpoint he is doing good on the trulicity a1c is down to 6.8as before : he admits to not eating well at all times states he is walking daily Asthma 217251808 J45.90 9 stable doing his walking at work every day quiet and went over the action plan not having issues with his vigorous walking Coronary arteriosclerosis 79518092 I25.10 no CP and is completely asymptomat ic Edema of lower leg 67718 7004 R60.0 no swellings now and looks good Essential hypertension 44265270 I10 good has dropprd some weight during the covid crisis and will be trying keeping off for the next visit [id number] Edmundo Miramontes [facility] [address] [facility],[place] [address] 03/18/2023 14:18:40 03/18/2023 15:15:00 Asthma 375763050 J45.909 stable doing his walking at work every day quiet and went over the action plan not having issues with his vigorous walking Type 2 roberto betes mellitus 44914214 E11.9 rechk in 3 months he is trying to lose the weight eating better hopefully he will be back to work soon diabetic exam was good from my standpoint he is doing good on the trulicity a1c is down to 6.8as before : he admits to not eating well at all times states he is walking daily Essential hypertension 34358255 I10 good has dropped some weight during the covid crisis and will be trying keeping off for the next visit Coronary arteriosclerosis 75662281 I25.10 no CP and is completely asymptomat ic Edema of lower leg 35340 7004 R60.0 no swellings now and looks good Hypercholesterolemia 136 74234 E78.00 crestor is working great so far and this will be continued LDL is 50 HDL is 45 [id number] Edmundo BryanAnil Miramontes DO [facility] [address] [facility],[place] [address] 07/07/2023 15:12:28 07/07/2023 16:03:18 Asthma 725441634 J45.909 stable doing his walking at work every day quiet and went over the action plan not having issues with his vigorous walking Essential hypertension 11512895 I10 good has dropped some weight during the covid crisis and will be trying keeping off for the next visit Type 2 roberto betes mellitus 21117797 E11.9 a1c is 6.7 was 6.3 and was 6.8rechk in 3 months he is trying to lose the weight eating better hopefully he will be back to work soon diabetic exam was good from my standpoint he is doing good on the trulicity a1c is down to 6.8as before : he admits to not eating well at all times states he is walking daily Coronary arteriosclerosis 39749193 I25.10 no CP and is completely asymptomat ic [id number] ALBAN DIAS [facility] [address] [facility] [address] [place] [address] 10/06/2023 08:42:24 10/06/2023 16:24:31 Type 2 diabetes mellitus 14204085 E11.9 will set up with standing order Hypercholesterolemia 136 12860 E78.01 excellent Essential hypertension 02342171 I10 stable [id number] Edmundo BryanAnil Miramontes [facility] [address] [facility],[place] [address] 01/12/2024 15:14:20 01/12/2024 16:07:24 Essential hypertension 83215187 I10 good has dropped some weight during the covid crisis and will be trying keeping off for the next visit Hypercholesterolemia 136 05900 E78.01 crestor is working great so far and this will be continued LDL is 50 HDL is 45 Type 2 roberto betes mellitus 45887799 E11.9 a1c is 6.7 was 6.3 and was 6.8rechk in 3 months he is trying to lose the weight eating better hopefully he will be back to work soon diabetic exam was good from my standpoint he is doing good on the trulicity a1c is down to 6.8as before : he admits to not eating well at all times states he is walking daily Serous otitis media 8032 7007 H65.93 iglesia use sudafed and afrin spray [id number] Edmundo Miramontes [facility] [address] [facility] [address],[place] [address] 04/11/2024 13:23:11 04/11/2024 13:57:51 Depression screening 421463341 Z13.31 SCREENING NEGATIVE Essential hypertension 90226624 I10 good has dropped some weight during the covid crisis and will be trying keeping off for the next visit Coronary arteriosclerosis 86353517 I25.10 no CP and is completely asymptomat ic Type 2 roberto betes mellitus 12546371 E11.9 a1c is pending was 7. was 6.7 was 6.3 and was 6.8rechk in 3 months he is trying to lose the weight eating better hopefully he will be back to work soon diabetic exam was good from my standpoint he is doing good on the trulicity a1c is down to 6.8as before : he admits to not eating well at all times states he is walking daily [id number] Edmundo Miramontes [facility] [address] [facility] [address] 07/12/2024 14:37:44 07/12/2024 15:19:08 Coronary arteriosclerosis 32694738 I25.10 no CP and is completely asymptomat icocc ectopic but is asymptomat ic (Traill with steth) Essential hypertension 76510501 I10 good has dropped some weight during the covid crisis and will be trying keeping off for the next visit Type 2 roberto betes mellitus 48932376 E11.9 a1c is pending was 7. was 6.7 was 6.3 and was 6.8rechk in 3 months he is trying to lose the weight eating better hopefully he will be back to work soon diabetic exam was good from my standpoint he is doing good on the trulicity a1c is down to 6.8as before : he admits to not eating well at all times states he is walking daily [id number] Edmundo Miramontes [facility] [address] [facility] [address],[place] [address] 11/16/2024 14:33:21 11/16/2024 15:40:13 Asthma 617382131 J45.909 stable doing his walking at work every day quiet and went over the action plan not having issues with his vigorous walking Essential hypertension 01484001 I10 good has dropped some weight during the covid crisis and will be trying keeping off for the next visit Edema of lower leg 41061 7004 R60.0 no swellings now and looks good Obstructiv e sleep apnea syndrome 87717936 G47.33 stable Type 2 roberto betes mellitus 89993790 E11.9 a1c is 7.4 was 7.1 was 6.7 was 6.3 and was 6.8rechk in 3 months he is trying to lose the weight eating better hopefully he will be back to work soon diabetic exam was good from my standpoint he is doing good on the trulicity a1c is down to 6.8as before : he admits to not eating well at all times states he is walking daily Cervical radiculopathy 11709096 M54.12 better now he tx conserv will call next time it flares up we will tx with pred Health Concerns Section Related Observation LastModified by Organization Detai ls LastModified Time None Recorded Concern Status LastModified by Organization Details LastModified Time None Recorded Advance Directives Directive None Recorded Payers Encounter Date Sequence Insurance Name Policy Number Policy Hope Covered Member ID Hope Member ID Guarantor Name 10/06/2023 1 [place]MED[place]ARE [place] HMO) [id number] Bebeto Valles [id number] Bebeto Valles 01/12/2024 1 [place] [id number] Bebeto Valles [id number] Bebeto Valles 04/11/2024 1 [place] [id number] Bebeto Valles [id number] Bebeto Valles 07/12/2024 1 [place] HMO) [id number] Bebeto Valles [id number] Bebeto Valles 11/16/2024 1 [facility] [id number] Bebeto Valles [id number] Bebeto Valles Notes Date Note Type Note Provider Name and Address Organization Details Recorded Time 3 text/htm l 3 mos tele-med phone callpatient consents to phone call the patient been having left side sciatic pain after twist injurythe patient was less active during this timethe patient is up from 6.7% to 7%related to loss of activity to his back will continue with exercise rest of his labs look great ALBAN DIAS [address] [place], [address], [facility] 10/06/2023 16:08:41 4 text/htm l had several bouts of ear infections states pain is now gone but feels full insideand hard to hear Edmundo Miramontes, [address], [address], [facility] 01/12/2024 15:54:41 4 text/htm l stresses about his and relates this is causing him excessive worryseeing dr roberts for her poss tia vs seizure Edmundo Miramontes, [address] [place], [address], [facility] 04/11/2024 13:45:17 4 text/htm l Care Management - DiabetesReported bypatient.Self Care:seeing eye doctor yearly for dilated eye exam; checking feet regularly; normal range of home blood sugars (in the low 100s); no side effects from medications Associated Symptoms:symptoms are usually well controlled; no fatigue; no dizziness; no excessive sweating; no headaches; no confusion; no increased thirst; no increased appetite; no increased urination; no blurred vision; no numbness of feet; no calluses on feetCare Management - HypertensionReported bypatient.Self Care:not under emotional stress Severity:symptoms are improving; does not interfere with daily activities Associated Symptoms:no dizziness; no lightheadedness; no chest pain; no shortness of breath; no palpitations; no edema; no calf muscle cramps; no blurred vision; no confusion; no headaches; no fatigue here for rechk has been bothered by allergies denies any cp no sob etc feeling good [id number] is 7.1 was 7.0 trying to be careful with diet Edmundo Miramontes DO [address] [place], [address], [facility] 07/12/2024 15:16:54 text/htm l Care Management - DiabetesReported bypatient.Self Care:seeing eye doctor yearly for dilated eye exam; checking feet regularly; normal range of home blood sugars (in the low 100s); no side effects from medications Associated Symptoms:symptoms are usually well controlled; no fatigue; no dizziness; no excessive sweating; no headaches; no confusion; no increased thirst; no increased appetite; no increased urination; no blurred vision; no numbness of feet; no calluses on feetCare Management - HypertensionReported bypatient.Self Care:not under emotional stress Severity:symptoms are improving; does not interfere with daily activities Associated Symptoms:no dizziness; no lightheadedness; no chest pain; no shortness of breath; no palpitations; no edema; no calf muscle cramps; no blurred vision; no confusion; no headaches; no fatigue here for rechk doing okno cp no sobsleeping ok Edmundo Miramontes DO [address] [place], [address], [facility] 11/16/2024 15:24:56
[2025-02-14 13:37] LABS: Estimated Average Glucose 157 mg/dL; Hemoglobin A1C 187.4043 umol/L; Hemoglobin A1c % 7.1 % (<6.0)
== END 2025-02-14 09:44 | disposition home or self-care (01) ==
LOC: HO.MANLDS 09:43
PROVIDERS: Visit Provider Internal Medicine
DX: E11.9 Type 2 diabetes mellitus without complications (principal)
CPT/HCPCS: 36415; 83036

== ENCOUNTER 2025-05-23 07:49 | Outpatient (REF) | payer MEDICARE, SELFPAY ==
--- OUTSIDE RECORDS SUMMARY | 2025-05-23 07:51 | XMS_ITS | Encounter Summary ---
Author Organization [facility] Address [address] [place] [address] [place] [address] Phone Care Team Providers Care Maple Syrup Maker Name Role Phone Edmundo Melendez DO Unavailable Page Philpi COLOR MAKER DYER Unavailable Raj Scales MD Unavailable [phone] Shae Prasad COLOR MAKER DYER Unavailable [phone] Bigda, Edmundo Bryan DO Primary Care Provider [phone] Bigda, Edmundo Bryan DO Unavailable Bigda, Edmundo A DO Primary Care Provider [phone] Encounter Details Date Type Department Care Team (Late st Contact Info) Description 03/17/2018 Transcribe Orders [facility] [address] [place] [address] Edmundo Melendez, DO [address] [facility] [address] [place], [place] [id number] Routine general medical examination at a health care facility (Primary Dx) Social History Tobacco Use Types Packs/Day Years Used Date Smoking Tobacco: Former Cigarettes Q uit: 01/23/1968 Smokeless Tobacco: Never Sex and Gender Information Value Date Recorded Sex Assigned at Not on file Legal Sex Male 10:08 PM EDT Gender Identity Not on file Sexual Orientation Not on file documented as of this encounter Plan of Treatment Upcoming Encounters Date Type Department Care Team (Late st Contact Info) Description 07/14/2025 9:00 AM EDT Office Visit [facility] [address] [place] [address] [address]rd Floor, [address] [place] [address] Kiesha Yanes, LETI 22 [facility], [address] [address] [email or web address] documented as of this encounter Results * (ABNORMAL) Hemoglobin A1c (03/17/2018 7:36 AM EDT) HEMOGLOBIN A1C 6.7(H) 4.3 - 5.8 % [facility] Blood 03/17/2018 7:36 AM EDT 03/17/2018 9:23 AM EDT us Edmundo Melendez DO LAB BLOOD ORDERABLES Final Resul t [facility] [address] [place] [address] documented in this encounter Visit Diagnoses Diagnosis Routine general medical examination at a health care facility- Primary documented in this encounter Care Teams Maple Syrup Maker Relationship Specialty Start Date End Date Edmundo Melendez DO PCP - General 08/04/17 11/08/24 Edmundo Melendez DO [address] [facility] [place] [address] PCP - General Internal Medicine 11/09/24 Edmundo Melendez DO Historical LMR Provider 08/03/17 Page Philip NP [address] [place] [address] [email or web address] Historical LMR Provider 08/03/17 2 Raj Scales MD 22 [facility] [address] [place] [address] [email or web address] Historical LMR Provider 08/03/17 Shae Prasad NP [address] [place] [address] Historical LMR Provider 08/03/17 2 Edmundo Melendez DO [address] [place] [address] [place] [address] [email or web address] Insurance Assigned Provider 01/23/24 01/22/25 documented as of this encounter Additional Source Comments The information contained in this document represents components of the legal health record. It is not the complete legal health record.[facility]
[2025-05-23 13:24] LABS: MANUAL DIFF FLAG NO
[2025-05-23 13:42] LABS: Hematocrit 45.1 % (42.0-52.0); Hemoglobin 14.3 g/dl (14.0-18.0); Imm Gran Abs Auto 0.03 X10*3/uL (0.00-0.03); Imm Gran Pct Auto 0.4 % (0.0-0.4); Lymphocytes Absolute Auto 2.2 X10*3/uL (1.2-4.9); Mean Corpuscular HGB Conc 31.7 g/dl (31.0-36.0); Mean Corpuscular Hemoglobin 28.5 pg (27.0-33.0); Mean Corpuscular Volume 89.8 fL (80.0-98.0); NRBC Abs Auto 0.000 X10*3/uL (0.0-0.012); NRBC Pct Auto 0.0 /100WBC (0.0-0.2); Platelet Count 235 X10*3/uL (160-400); Red Blood Count 5.02 X10*6/uL (4.60-5.80); White Blood Count 7.1 X10*3/uL (4.8-10.8)
[2025-05-23 13:49] LABS: Hemoglobin A1C 209.5595 umol/L; Total Hemoglobin (HGBA1C) 3722.4162 umol/L
[2025-05-23 14:07] LABS: Alanine Aminotransferase 22 U/L (0-40); Albumin Level 4.3 g/dL (3.5-5.0); Alkaline Phosphatase 73 U/L (39-117); Anion Gap 13 (12-20); Aspartate Amino Transferase 32 U/L (5-37); Blood Urea Nitrogen 19 mg/dL (9-16); Calcium 8.8 mg/dL (8.4-10.2); Carbon Dioxide 28 mmol/L (22-29); Chloride 104 mmol/L (96-108); Cholesterol 94 mg/dL (<200); Estimated Glomerular Filt Rate > 60; HDL Cholesterol 40 mg/dL (>40); Potassium 4.3 mmol/L (3.3-5.1); Sodium 141 mmol/L (135-145); Total Protein 7.8 g/dL (6.5-8.0); Triglycerides 109 mg/dL (<150)
== END 2025-05-23 07:50 | disposition home or self-care (01) ==
LOC: HO.MANLDS 07:49
PROVIDERS: Visit Provider Internal Medicine
DX: Z00.00 Encounter for general adult medical examination without abnormal findings (principal); Z13.6 Encounter for screening for cardiovascular disorders; E11.9 Type 2 diabetes mellitus without complications
CPT/HCPCS: 36415; 80053; 80061; 83036; 85025

== ENCOUNTER 2025-09-13 11:34 | Outpatient (REF) | payer OTHER, SELFPAY ==
--- OUTSIDE RECORDS SUMMARY | 2025-09-13 14:39 | XMS_ITS | Clinical Summary ---
Author Organization [facility] Address [address] [place], [place] [id number] Phone Care Team Providers Care Ornamental Iron Worker Name Role Phone Edmundo Melendez DO Unavailable Raj Scales MD Unavailable [phone] Edmundo Melendez DO Primary Care Provider [phone] Allergies No known active allergies Medications aspirin 81 MG EC tablet Take 81 mg by mouth daily. Active lisinopril-hydroC HLOROthiazide (PRINZIDE,ZESTORE TIC) 10-12.5 mg per tablet Take 1 tablet by mouth daily. Active montelukast (SINGULAIR) 10 mg tablet Take 1 tablet by mouth every evening. Active GLUCOSAMINE/CHOND RO CARBALLO A/C/MN (GLUCOSAMINE-WADE DROITIN COMPLX ORAL) Active cyanocobalamin (VIT B-12) 1000 MCG tablet p.o. one daily Acti ve rosuvastatin (CRESTOR) 10 MG tablet Take 10 mg by mouth daily. Active TRULICITY 0.75 mg/0.5 mL subcutaneous injection Inject 0.5 mg under the skin once a week. 3 Active FREESTYLE LITE Strp strips USE TO TEST BLOOD SUGAR EVERY DAY 3 Active FREESTYLE 28 gauge lancets USE TO CHECK BLOOD SUGAR EVERY DAY 4 Active albuterol (PROAIR HFA) 90 mcg/actuation inhaler Inhale 2 puffs every 4 hours by inhalation route. Active ketoconazole 2 % cream APPLY TOPICALLY TO THE AFFECTED AREA EVERY DAY Active apixaban (ELIQUIS) 5 mg tablet Take 1 tablet (5 mg total) by mouth 2 (two) times a day. 180 tablet 3 Active azithromycin (ZITHROMAX) 250 MG tablet TAKE 2 TABLETS (500 MG) BY ORAL ROUTE ONCE DAILY FOR 1 DAY THEN 1 TABLET (250 MG) BY ORAL ROUTE ONCE DAILY FOR 4 DAYS Active Active Problems Problem Noted Date Diagnosed Date New onset a-fib 12/09/2024 Assessment & Plan (07/14/2025 8:59 AM EDT): He was found to have atrial fibrillation. He is not on any AV rickey blockers and is rate controlled. He will remain on Eliquis 5 mg twice daily for anticoagulation. Assessment & Plan (01/10/2025 2:54 PM EDT): He was found to be in atrial fibrillation during his last visit in November. He is on Eliquis 5 mg twice daily. He is not on any AV rickey blockers heart rate control. He is rate controlled here in the office to 80 bpm. He did have a Holter monitor for 48 hours which showed he is in atrial fibrillation 100% of the time. He states that he is not symptomatic with this so he will continue his apixaban 5 mg twice daily without change. He was reminded to stay hydrated. He does continue to report having some fatigue as well as continued atrial fibrillation. We will do an echocardiogram and does not look like 1 has been recently done. Assessment & Plan (12/09/2024 3:17 PM EST): We did do an EKG today for his visit. He was found to have a new onset atrial fibrillation though he is rate controlled 70s-90s. He is not on anticoagulation however his CHADS2 Vascor is noted to be 4 or a 5. Patient states that he is not diabetic however he is on Trulicity for this. Based on this with diabetes he would be listed as a 5. We did discuss his stroke risk and we will be starting Eliquis 5 mg twice daily. He will need to apply to the assistance program as his medications are already quite costly. He was given a sample today to start and he was given instructions on when to start this medication. He was also given atrial fibrillation education in his wrap-up summary. We did discuss that he is a higher stroke risk due to the atrial fibrillation. Patient verbalizes understanding. I have ordered a 48-hour Holter monitor to assess his atrial fibrillation burden and if there are any significant increases to his heart rate. At this time we will hold off on adding any AV rickey blockers. Is unclear how long he has been in atrial fibrillation as this was an incidental finding on his EKG today. He does report since his last COVID shot he has been feeling a buzzing sensation to his head is unclear whether this is atrial fibrillation related. Asthma 09/12/2018 Left-sided carotid artery disease 09/12/2018 Assessment & Plan (07/14/2025 9:00 AM EDT): He did undergo a carotid endarterectomy. We will repeat his carotid duplex today prior to his next visit in 6 months. Assessment & Plan (12/09/2023 2:54 PM EST): He has not had a repeat carotid ultrasound duplex since 2020. He has not been following with [facility] vascular surgery post carotid endarterectomy in some time. I have ordered a carotid ultrasound to monitor his carotid artery stenosis as it has been a few years. I will let him know if there is anything concerning on his carotid ultrasound. Obesity 09/12/2018 Atherosclerosis of [place] co ronary artery of [place] heart without angina pectoris 03/06/2018 Assessment & Plan (07/14/2025 8:59 AM EDT): Asymptomatic. Will continue to optimize cardiac risk factors. He will continue on apixaban 5 mg twice daily, aspirin 81 mg daily, lisinopril-hydrochlorothiazide 10-12.5 mg tablet daily, rosuvastatin 10 mg daily. PCP is following lipid panel. LDL goal less than 50 mg/dL. SBP goal less than 130/80. He is encouraged follow heart healthy diet: Low-sodium and exercise. Assessment & Plan (01/10/2025 2:53 PM EDT): Continues to be asymptomatic denying chest pain. He is pretty active. He will remain on aspirin 80 mg daily, lisinopril-hydrochlorothiazide 10-12.5 mg daily, rosuvastatin 10 mg daily. Assessment & Plan (12/09/2024 3:17 PM EST): He is asymptomatic from the standpoint. He is on aspirin 81 mg daily, lisinopril-hydrochlorothiazide 10-12.5 mg daily, rosuvastatin 10 mg daily. He will continue his medication without change. Will continue to optimize cardiac risk factors. He is encouraged follow heart healthy diet, low-sodium with exercise. Assessment & Plan (12/09/2023 2:53 PM EST): He continues to be asymptomatic denying chest pain, shortness of breath, palpitations, lightheadedness or syncopal events. He did recently hurt his back and his exercise has been limited. I did suggest that he seek out his PCP if his back does not improve in the next couple days to possibly get PT to help with his muscular issue. Will continue to optimize his cardiac risk factors. He is on aspirin 81 mg daily lifelong, lisinopril-hydrochlorothiazide 10-12.5 mg tablet daily, rosuvastatin 10 mg daily. PCP is following his cholesterol panel. He is encouraged follow heart healthy diet including low sodium and to continue being active. 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 Continue rosuvastatin 10 mg daily. LDL goal less than 50 mg/dL. Assessment & Plan (01/10/2025 2:54 PM EDT): Continue rosuvastatin 10 mg daily Assessment & Plan (12/09/2024 3:17 PM EST): Continue rosuvastatin 10 mg daily. Assessment & Plan (12/09/2023 2:54 PM EST): PCP follows lipid panel continue rosuvastatin 10 mg daily. S/P CABG (coronary artery bypass graft) 03/06/20 18 Encounters Date Type Department Care Team Description 08/07/2025 [facility] [address], [address] [place] [address] Kiesha Yanes DNP Medication Refill 07/14/2025 9:00 AM EDT Office Visit [facility] [address], [address] [place] [address] Kiesha Yanes DNP Mixed hyperlipidemia (Primary Dx); Stenosis of left carotid artery; Atherosclerosis of [place] coronary artery of [place] heart without angina pectoris; New onset a-fib from Last 3 Months Immunizations Immunization Administration Dates Next Due COVID-19 (Pre-08/10) AstraZe neca Vaccine, rS-ChAdOx1, PF 01/14/2021 COVID-19 (Pre-08/10) Pfizer Vaccine, Bivalent 5-11 08/05/2022 INFLUENZA, SPLIT VIRUS, TRIVALENT PF 10/26/2017 Influenza High-Dose Quadriva lent Preservative Free IM 09/15/2023,07/23/2021,07/09/2020 Influenza High-Dose Trivalen t Preservative Free IM 07/01/2019,07/23/2018,10/24/2015 Influenza Quadrivalent w/ Preservative IM 2020 Influenza, Injectable,josette valent, Preservative Free, Ped 07/09/2020,07/01/2019,07/23/2018 Influenza, Unspecified Formulation 08/14/2022,,09/07/2009 Pneumococcal conjugate PCV13 07/01/2019 Pneumococcal polysaccharide PPSV23 08/22/2020, Tdap 07/23/2021 Zoster live 09/01/2019,07/01/2019 Zoster recombinant 09/01/2019,07/01/2019 Family History Medical History Relation Comments Sleep disorder Neg Hx Social History Tobacco Use Types Packs/Day Years Used Date Smoking Tobacco: Former Cigarettes 1 963 - 01/23/1968 Smokeless Tobacco: Never Tobacco Cessation:Counseling Given: Not Answered Alcohol Use Standard Drinks/Week Comments Yes 3 (1 standard drink = 0.6 oz pur e alcohol) Education Answer Date Recorded Are you interested in more education? Not on konstantin e 02/13/2023 Are you concerned about learning? Not on file 02/13/2023 No 02/13/2023 No 02/13/2023 Digital Access Answer Date Recorded No 03/16/2023 No 03/16/2023 Reliable internet access at home? Not on file 03/16/2023 Device with a working camera? Not on file Sex and Gender Information Value Date Recorded Sex Assigned at Not on file Legal Sex Male 10:08 PM EDT Gender Identity Not on file Sexual Orientation Not on file Last Filed Vital Signs Vital Sign Reading Time Taken Comments Blood Pressure 132/76 07/14/2025 8:39 AM EDT Pulse 55 07/14/2025 8:39 AM EDT Temperature 36.8 C (98.2 F) 12/03/2023 8:24 AM EST Respiratory Rate 18 12/03/2023 8:24 AM EST Oxygen Saturation 98% 07/14/2025 8:39 AM EDT Inhaled Oxygen Concentration - - Weight 108.9 kg (240 lb) 07/14/2025 8:39 AM EDT Height 162.6 cm (5' 4.02 ) 07/14/2025 8:39 AM ED T Body Mass Index 41.18 07/14/2025 8:39 AM EDT Plan of Treatment Upcoming Encounters Date Type Department Care Team (Late st Contact Info) Description 01/11/2026 9:30 AM EDT Appointment [facility] [address] [place] [address] Kiesha Yanes DNP [address] [place] [address], [address] [address] 01/25/2026 9:30 AM EDT Office Visit [facility] [address] [facility], [address] [address] Kiesha Yanes DNP [address] [place] [address], [address] [address] Health Maintenance Due Date Last Done Comments DEPRESSION SCREENING 1958 RSV VACCINE (1 - 1-dose 75+ series) 2021 DIABETIC EYE EXAM 11/14/2024 LIPID PANEL 04/11/2025 04/11/2024, 09/18, 03/13/2023, Additional history exists HEMOGLOBIN A1C 05/14/2025 11/14/2024, 03/20, 01/06/2024, Additional history exists INFLUENZA VACCINE (#1) 2025 , 08/14/2022, 07/23/2021, Additional history exists COVID-19 VACCINE ( season) 2025 08/05/2022, 08/10/2021, 02/05/2021, Additional history exists CREATININE LEVEL 11/14/2025 11/14/2024 POTASSIUM LEVEL 11/14/2025 11/14/2024 BLOOD PRESSURE 01/11/2026 07/14/2025 SMOKING Hx and SMOKELESS TOBACCO SCREENING 07/14/2026 07/14/2025 Adult Td,Tdap Booster 07/23/2031 07/23/2021 ZOSTER VACCINES Completed 09/01/2019, 08/19, 07/01/2019, Additional history exists HEPATITIS C SCREENING Completed 03/26/2020 PNEUMOCOCCAL VACCINES (50+ years) Completed 08/22/2020, 07/01/2019, 09/07/2009 HEPATITIS A VACCINES Aged Out No long er eligible based on patient's age to complete this topic HIB VACCINES Aged Out No longer eligi ble based on patient's age to complete this topic MENINGOCOCCAL VACCINES (ACWY) Aged Out No longer eligible based on patient's age to complete this topic MENINGOCOCCAL VACCINES (B) Aged Out N o longer eligible based on patient's age to complete this topic Medical Devices Not on file Procedures Procedure Name Priority Date/Time Associated Diagnosis Comments HEMOGLOBIN A1C Routine 11/14/2024 10:00 AM EST Type 2 diabetes mellitus without complication, unspecified whether correction insulin use COMPREHENSIVE METABOLIC PANEL (CMP) Routine 11/14/2024 10:00 AM EST Type 2 diabetes mellitus without complication, unspecified whether morning news anchor insulin use LIPID PANEL Routine 09/08/2017 7:44 AM EST Type 2 diabetes mellitus with complication, unspecified morning news anchor insulin use status from Last 3 Months or Most Recently Relevant to Health Maintenance Results * (ABNORMAL) Comprehensive metabolic panel (11/14/2024 10:00 AM EST) SODIUM 139 133 - 146 mmol/L [facility] POTASSIUM 4.3 3.3 - 5.1 mmol/L [facility] Comment:Specimen slightly he molyzed, result may be falsely elevated. CHLORIDE 103 96 - 108 mmol/L [facility] CO2 27 21 - 35 mmol/L [facility] BUN 24(H) 6 - 19 mg/dL [facility] CREATININE 1.20 0.5 - 1.5 mg/dL [facility] GLUCOSE 128(H) 70 - 99 mg/dL [facility] ALBUMIN 3.9 3.9 - 4.8 g/dL [facility] TOTAL PROTEIN 7.5 6.5 - 8.0 g/dL [facility] CALCIUM 9.1 8.4 - 10.3 mg/dL [facility] ALKALINE PHOSPHATASE 72 39 - 117 U/L [facility] TOTAL BILIRUBIN 0.5 0.0 - 1.2 mg/dL [facility] AST 28 0 - 37 U/L [facility] ALT 21 0 - 40 U/L [facility] GLOBULIN 3.6 1 - 4.8 g/dL [facility] EGFR 62 >59 mL/min/1.7 3m2 [facility] Comment:Estimated glomerular filtration rate calculated using the CKD-EPI refit equation. ANION GAP 13 10 - 20 mmol/L [facility] Blood 11/14/2024 10:0 0 AM EST 11/14/2024 10:03 AM EST us Edmundo Melendez DO LAB BLOOD BKR ORDERABLES Final R esult [facility] [address] [place], [place] [id number] * (ABNORMAL) Hemoglobin A1c (11/14/2024 10:00 AM EST) HEMOGLOBIN A1C 7.4(H) 4.3 - 5.8 % [facility] Blood 11/14/2024 10:0 0 AM EST 11/14/2024 10:03 AM EST us Edmundo A Bigda DO LAB BLOOD BKR ORDERABLES Final R esult Performing Organization Address [facility]/ZIP Co de Phone Number [address] [address] * (ABNORMAL) Lipid panel (09/08/2017 7:44 AM EST) HDL 58 mg/dL [facility] Comment: Interpretation: Risk Level Males Decreased >45 mg/dL Average 40-45 mg/dL Increased <40 mg/dL CHOLESTEROL 151 0 - 240 mg/dL [facility] TRIGLYCERIDES 135 30 - 160 mg/dL [facility] LDL 66 50 - 129 mg/dL [facility] Comment: LDL levels in terms of risk for coronary heart disease: <100 mg/dL: Optimal 100-129 mg/dL: Near or above optimal 130-159 mg/dL: Borderline high 160-189 mg/dL: High >190 mg/dL: Very High CARDIAC RISK RATIO 2.6(L) 3.4 - 5.0 [facility] Blood 09/08/2017 7:44 AM EST 09/08/2017 7:56 AM EST us Edmundo Bryan Magañada DO LAB BLOOD BKR ORDERABLES Edited Result - Final Performing Organization Address [facility] Co de Phone Number [address] [address] from Last 3 Months or Most Recently Relevant to Health Maintenance Insurance [facility] MEDICARE REPLACEMENT MEDICARE REPLACEMENT MEDICARE REPLACEMENT MEDICARE REPLACEMENT [place] [id number] MEDICARE REPLACEMENT MEDICARE REPLACEMENT [place] [id number] Care Teams Ornamental Iron Worker Relationship Specialty Start Date End Date Edmundo Melendez DO [address] [facility] [place] [address] [email or web address] PCP - General Internal Medicine 11/09/24 Edmundo Melendez DO Historical LMR Provider 08/03/17 Raj Scales MD [address] [place] [address] [address] [place] [address] Historical LMR Provider 08/03/17 Additional Source Comments The information contained in this document represents components of the legal health record. It is not the complete legal health record.[facility]
--- OUTSIDE RECORDS SUMMARY | 2025-09-13 14:39 | XMS_ITS | Encounter Summary ---
Author Organization [facility] Address [address] [place] [address] [place] [address] Phone Care Team Providers Care Aerobics Instructor Name Role Phone Al, Edmundo Adams DO Unavailable Raj Scales MD Unavailable [phone] Bigda, Edmundo A DO Unavailable Bigda, Edmundo A DO Primary Care Provider [phone] Encounter Details Date Type Department Care Team (Late st Contact Info) Description 01/10/2025 Procedure Pass [facility] [address] [place] [address] Social History Tobacco Use Types Packs/Day Years Used Date Smoking Tobacco: Former Cigarettes 1 963 - 01/23/1968 Smokeless Tobacco: Never Alcohol Use Standard Drinks/Week Comments Yes 3 [...] 01/11/2026 9:30 AM EDT Appointment [facility] [address] [place] [address] Kiesha Yanes, LETI 22 [facility], [address] [address] [email or web address] 01/25/2026 9:30 AM EDT Office Visit [facility] [address] [facility], [address] [place] [address] Kiesha Yanes, LETI 22 [facility], [address] [address] documented as of this encounter Visit Diagnoses Not on filedocumented in this encounter Care Teams Aerobics Instructor Relationship Specialty Start Date End Date Edmundo Melendez DO [address] [place] [address] PCP - General Internal Medicine 11/09/24 Edmundo Melendez DO Historical LMR Provider 08/03/17 Raj Scales MD [address] [place] [address], [address] [address] Historical LMR Provider 08/03/17 Edmundo Melendez DO [address] [place] [address] Insurance Assigned Provider 01/23/24 01/22/25 documented as of this encounter Additional Source Comments The information contained in this document represents components of the legal health record. It is not the complete legal health record.[facility]
--- OUTSIDE RECORDS SUMMARY | 2025-09-13 14:39 | XMS_ITS | Encounter Summary ---
Author Organization [facility] Address [address] [place] [address] [place] [address] Phone Care Team Providers Care Cover Stripper Name Role Phone Edmundo Melendez DO Unavailable Page Philip MEDICAL BILLER Unavailable [phone] Raj Scales MD Unavailable [phone] Shae Prasad MEDICAL BILLER Unavailable [phone] Bigda, Edmundo A DO Primary Care Provider [phone] Bigda, Edmundo A DO Unavailable Bigda, Edmundo A DO Primary Care Provider [phone] Encounter Details Date Type Department Care Team (Late st Contact Info) Description 08/10/2019 Procedure Pass [facility]oscopy Admitting Dept Virtual Department [address] [place] [address] Social History Tobacco Use Types Packs/Day Years Used Date Smoking Tobacco: Former Cigarettes Q uit: 01/23/1968 Smokeless Tobacco: Never Alcohol Use Standard Drinks/Week Comments Yes 3 (1 standard drink = 0.6 oz pur e alcohol) Sex and Gender Information Value Date Recorded Sex Assigned at Not on file Legal Sex Male 10:08 PM EDT Gender Identity Not on file Sexual Orientation Not on file documented as of this encounter Plan of Treatment Upcoming Encounters Date Type Department Care Team (Late st Contact Info) Description 01/11/2026 9:30 AM EDT Appointment [facility] [address] 3rd [place] [address] Kiesha Yanes, LETI 22 [facility], [address] [address] 01/25/2026 9:30 AM EDT Office Visit [facility] 22 [facility] 3rd Floor, [address] [address] Kiesha Yanes, LETI [address] [address] documented as of this encounter Visit Diagnoses Not on filedocumented in this encounter Care Teams Cover Stripper Relationship Specialty Start Date End Date Edmundo Melendez DO PCP - General 08/04/17 11/08/24 Edmundo Melendez DO [address] [place] [address] PCP - General Internal Medicine 11/09/24 Edmundo Melendez DO Historical LMR Provider 08/03/17 Page Philip NP [address] [place] [address] [email or web address] Historical LMR Provider 08/03/17 2 Raj Scales MD [address] [place] [address] Historical LMR Provider 08/03/17 Shae Prasad NP [address] [place] [address] Historical LMR Provider 08/03/17 2 Edmundo Melendez DO [address] [place] [address] [email or web address] Insurance Assigned Provider 01/23/24 01/22/25 documented as of this encounter Additional Source Comments The information contained in this document represents components of the legal health record. It is not the complete legal health record.[facility]
--- OUTSIDE RECORDS SUMMARY | 2025-09-13 14:39 | XMS_ITS | Encounter Summary ---
Author Organization [facility] Address [address] [place] [address] [place] [address] Phone Care Team Providers Care Quality Control Lab Technician Name Role Phone Al Edmundo Adams DO Unavailable Raj Scales MD Unavailable [phone] Edmundo Melendez DO Primary Care Provider [phone] Reason for Visit * Reason Comments Medication Refill Encounter Details Date Type Department Care Team (Late st Contact Info) Description 08/07/2025 Refill [facility] [address] [place] [address] 3rd Floor, [address] [place] [address] Kiesha Yanes, [facility] 22 [facility], [address] [address] [email or web address] Medication Refill Social History Tobacco Use Types Packs/Day Years [...] 01/11/2026 9:30 AM EDT Appointment [facility] [place] [address] [place] [address] Kiesha Yanes DNP [address] [place] [address], [address] [address] 01/25/2026 9:30 AM EDT Office Visit [facility] [address] [facility], [address] [address] Kiesha Yanes DNP [address] [place] [address], [address] [address] documented as of this encounter Visit Diagnoses Not on filedocumented in this encounter Care Teams Quality Control Lab Technician Relationship Specialty Start Date End Date Edmundo Melendez DO [address] [facility] [place] [address] [place] [address] PCP - General Internal Medicine 11/09/24 Edmundo Melendez DO Historical LMR Provider 08/03/17 Raj Scales MD [address] [place] [address], [address] [address] Historical LMR Provider 08/03/17 documented as of this encounter Additional Source Comments The information contained in this document represents components of the legal health record. It is not the complete legal health record.[facility]
--- OUTSIDE RECORDS SUMMARY | 2025-09-13 14:39 | XMS_ITS | Encounter Summary ---
Author Organization [facility] Address [address] [place] [address] Phone Care Team Providers Care Aerospace Engineer Name Role Phone Edmundo Melendez DO Unavailable Page Philip COVERER Unavailable Raj Scales MD Unavailable [phone] Shae Prasad COVERER Unavailable Bigda, Edmundo Bryan DO Primary Care Provider [phone] Bigda, Edmundo Bryan DO Unavailable Bigda, Edmundo A DO Primary Care Provider [phone] Encounter Details Date Type Department Care Team (Late st Contact Info) Description 09/08/2017 Transcribe Orders [address] [place], [place] [id number] AlEdmundo, DO [address] [facility] [address] [place], [place] [id number] Type 2 diabetes mellitus with complication, unspecified skilled nursing insulin use status (Primary Dx) Social History Tobacco Use Types Packs/Day Years Used Date Smoking Tobacco: Never Assessed Sex and Gender Information Value Date Recorded Sex Assigned at Not on file Legal Sex Male 10:08 PM EDT Gender Identity Not on file Sexual Orientation Not on file documented as of this encounter Plan of Treatment Upcoming Encounters Date Type Department Care Team (Late st Contact Info) Description 01/11/2026 9:30 AM EDT Appointment [facility] [address] [place] [address] Kiesha Yanes DNP 22 [facility], [address] [place] [address] 01/25/2026 9:30 AM EDT Office Visit [facility] 22 [facility] 3rd Floor, [address] [place] [address] Kiesha Yanes DNP 22 [facility], [address] [place] [address] [email or web address] documented as of this encounter Procedures Procedure Name Priority Date/Time Associated Diagnosis Comments LIPID PANEL Routine 09/08/2017 7:44 AM EST Type 2 diabetes mellitus with complication, unspecified skilled nursing insulin use status documented in this encounter Results * (ABNORMAL) Lipid panel (09/08/2017 7:44 AM EST) HDL 58 mg/dL [facility] Comment: Interpretation: Risk Level Males Decreased >45 mg/dL Average 40-45 mg/dL Increased <40 mg/dL CHOLESTEROL 151 0 - 240 mg/dL [facility] TRIGLYCERIDES 135 30 - 160 mg/dL [facility] LDL 66 50 - 129 mg/dL [facility] Comment: LDL levels in terms of risk for coronary heart disease: <100 mg/dL: Optimal 100-129 mg/dL: Near or above optimal 130-159 mg/dL: Borderline high 160-189 mg/dL: High >190 mg/dL: Very High CARDIAC RISK RATIO 2.6(L) 3.4 - 5.0 [facility] Blood 09/08/2017 7:44 AM EST 09/08/2017 7:56 AM EST us Edmundo Melendez DO LAB BLOOD BKR ORDERABLES Edited Result - Final [facility] [address] [place] [address] documented in this encounter Visit Diagnoses Diagnosis Type 2 diabetes mellitus with complication, unspecified 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- Primary documented in this encounter Care Teams Aerospace Engineer Relationship Specialty Start Date End Date Edmundo Melendez DO PCP - General 08/04/17 11/08/24 Edmundo Melendez DO [address] [place] [address] PCP - General Internal Medicine 11/09/24 Edmundo Melendez DO Historical LMR Provider 08/03/17 Page Philip NP [address] [place] [address] [email or web address] Historical LMR Provider 08/03/17 2 Raj Scales MD [address] [place] [address] Historical LMR Provider 08/03/17 Shae Prasad NP [address] [place] [address] Historical LMR Provider 08/03/17 2 Edmundo Melendez DO [address] [place] [address] Insurance Assigned Provider 01/23/24 01/22/25 documented as of this encounter Additional Source Comments The information contained in this document represents components of the legal health record. It is not the complete legal health record.[facility]
--- OUTSIDE RECORDS SUMMARY | 2025-09-13 14:39 | XMS_ITS | Encounter Summary ---
Author Organization [facility] Address [address] [place] [address] Phone Care Team Providers Care Dance Hall Host/Hostess Name Role Phone Edmundo Melendez DO Unavailable Page Philip TRUST VAULT CUSTODIAN Unavailable Raj Scales MD Unavailable [phone] Shae Prasad TRUST VAULT CUSTODIAN Unavailable [phone] Bigda, Edmundo A DO Primary Care Provider [phone] Bigda, Edmundo Adams DO Unavailable Bigda, Edmundo A DO Primary Care Provider [phone] Encounter Details Date Type Department Care Team (Late st Contact Info) Description 03/17/2018 Transcribe Orders [facility] [address] [place] [address] Edmundo Melendez, DO 179 [facility] [address] [place], [place] [phone] Routine general medical examination at a health [...] 9:30 AM EDT Appointment [facility] [address]rd [place] [address] Kiesha Yanes DNP 22 [facility], [address] [place] [address] 01/25/2026 9:30 AM EDT Office Visit [facility] [address] [place] [address] Dr [address] [facility], [address] [place] [address] Kiesha Yanes DNP 22 [facility], [address] [place] [address] documented as of this encounter Results * (ABNORMAL) Hemoglobin A1c (03/17/2018 7:36 AM EDT) HEMOGLOBIN A1C 6.7(H) 4.3 - 5.8 % [facility] Blood 03/17/2018 7:36 AM EDT 03/17/2018 9:23 AM EDT us Edmundo Melendez DO LAB BLOOD BKR ORDERABLES Final R esult [facility] [address] [place] [address] documented in this encounter Visit Diagnoses Diagnosis Routine general medical examination at a health care facility- Primary documented in this encounter Care Teams Dance Hall Host/Hostess Relationship Specialty Start Date End Date Edmundo Melendez DO PCP - General 08/04/17 11/08/24 Edmundo Melendez DO [address] [place] [address] PCP - General Internal Medicine 11/09/24 Edmundo Melendez DO Historical LMR Provider 08/03/17 Page Philip NP 21 [place] [address] [email or web address] Historical LMR Provider 08/03/17 2 Raj Scales MD [address] [address] Historical LMR Provider 08/03/17 Shae Prasad NP [address] [place] [address] Historical LMR Provider 08/03/17 2 Edmundo Melendez DO [address] [place] [address] Insurance Assigned Provider 01/23/24 01/22/25 documented as of this encounter Additional Source Comments The information contained in this document represents components of the legal health record. It is not the complete legal health record.[facility]
--- OUTSIDE RECORDS SUMMARY | 2025-09-13 14:39 | XMS_ITS | Encounter Summary ---
Author Organization [facility] Address [address] [place] [address] Phone Care Team Providers Care Document Management Technician Name Role Phone Edmundo Melendez DO Unavailable Page Philip SLATE CUTTER OPERATOR Unavailable Raj Scales MD Unavailable [phone] Shae Prasad SLATE CUTTER OPERATOR Unavailable Bigda, Edmundo Bryan DO Primary Care Provider [phone] Bigda, Edmundo Adams DO Unavailable Bigda, Edmundo A DO Primary Care Provider [phone] Encounter Details Date Type Department Care Team (Late st Contact Info) Description 09/13/2018 Ancillary Orders Virtual Department [address] [place] [address] Edmundo Melendez, DO 179 [facility] [place] [address] [email or web address] Encounter for screening for cardiovascular disorders Social History Tobacco Use Types Packs/Day Years [...] 01/11/2026 9:30 AM EDT Appointment [facility] [place] [address] [place], [place] [phone] Kiesha Yanes DNP [address] [facility], [address] [place] [address] [email or web address] 01/25/2026 9:30 AM EDT Office Visit [facility] 22 [facility] 3rd Floor, [address] [place] [address] Kiesha Yanes DNP [address] [facility], [address] [place] [address] [email or web address] documented as of this encounter Results * US Abdominal Aortic Screening (09/24/2018 8:03 AM EST) Anatomical Region Laterality Modality Abdomen Ultrasound 09/24/2018 8:38 AM EST Impressions 09/24/2018 8:40 AM EST No abdominal aortic aneurysm. POS - [id number] Narrative 09/24/2018 8:40 AM EST HISTORY: Abdominal aortic aneurysm screening. COMPARISON: None FINDINGS: No evidence of an abdominal aortic aneurysm. The proximal aorta measures 2.6 cm in maximal diameter, the mid aorta measures 2.1 cm, and the distal aorta measures 1.9 cm. Common iliac arteries are nonaneurysmal measuring up to 1.3 cm on the right and 1.2 cm on the left. Moderate amounts of echogenicities along the vascular pollack from atherosclerotic disease. Aorta and iliac arteries are patent on color Doppler. Procedure Note Kiet Wallace MD - 09/24/2018 HISTORY: Abdominal aortic aneurysm screening. COMPARISON: None FINDINGS: No evidence of an abdominal aortic aneurysm. The proximal aorta measures2.6 cm in maximal diameter, the mid aorta measures 2.1 cm, and the distalaorta measures 1.9 cm. Common iliac arteries are nonaneurysmal measuringup to 1.3 cm on the right and 1.2 cm on the left. Moderate amounts ofechogenicities along the vascular pollack from atherosclerotic disease.Aorta and iliac arteries are patent on color Doppler. IMPRESSION: No abdominal aortic aneurysm. POS - [id number] us Edmundo Bryan Al PAL IMG US ABDOMEN Final Result documented in this encounter Visit Diagnoses Diagnosis Encounter for screening for cardiovascular disorders Encounter for screening for cardiovascular disorders documented in this encounter Care Teams Document Management Technician Relationship Specialty Start Date End Date Edmundo Melendez DO PCP - General 08/04/17 11/08/24 Edmundo Melendez DO [address] [place] [address] PCP - General Internal Medicine 11/09/24 Edmundo Melendez DO Historical LMR Provider 08/03/17 Page Philip NP [address] [place] [address] [email or web address] Historical LMR Provider 08/03/17 2 Raj Scales MD [address] [address] Historical LMR Provider 08/03/17 Shae Prasad NP [address] [place] [address] Historical LMR Provider 08/03/17 2 Edmundo Melendez DO [address] [place] [address] [email or web address] Insurance Assigned Provider 01/23/24 01/22/25 documented as of this encounter Additional Source Comments The information contained in this document represents components of the legal health record. It is not the complete legal health record.[facility]
== END 2025-09-13 11:35 | disposition home or self-care (01) ==
LOC: HO.MANLDS 11:34
PROVIDERS: Visit Provider Internal Medicine
DX: E11.9 Type 2 diabetes mellitus without complications (principal); Z79.4 Long term (current) use of insulin
CPT/HCPCS: 36415; 83036